=== PATIENT | male | born 1965 | race Caucasian/White ===

== ENCOUNTER 2019-11-13 12:08 | Inpatient (IN) | payer SELFPAY ==
[2019-11-13] VITALS (21 sets, daily range): BP systolic 87–126; BP diastolic 52–77; PULSE 98–155; RESP 14–94; TEMP 36.8–36.9; O2SAT 94–99; BMI 48.8
--- NOTE | 2019-11-13 12:28 | XR_ITS ---
WS: [id number] Portable AP upright chest, 11/13/2019 Clinical Data: dyspnea/cough Comparison: None. Findings: No nodules, masses or effusions are seen. The heart is normal. The pulmonary vascularity is not increased. No pneumonia or pneumothorax is seen. Monitor leads on the chest wall. XR/XR chest 1V portable [id number] Impression: Negative chest.
[2019-11-13 12:40] LABS: Basophils % 0.2 %; Eosinophils % 0.1 %; Hematocrit 44.4 % (42.0-52.0); Hemoglobin 14.6 g/dL (11.7-16.6); Lymphocytes # 1.1 10^3/uL (0.8-4.8); Lymphocytes % 11.4 %; Mean Corpuscular HGB Conc 32.9 g/dL (30.0-36.0); Mean Corpuscular Volume 91.2 fL (80-94); Mean Platelet Volume 10.5 fL (7.4-10.4); Monocytes # 1.2 10^3/uL (0.2-0.9); Monocytes % 12.3 %; Neutrophils # 7.37 10^3/uL (1.8-7.7); Neutrophils % 75.5 %; Nucleated Red Blood Cells % 0 %; Platelet Count 179 10^3/cmm (130-400); Red Blood Count 4.87 10^6/uL (4.1-5.3); Red Cell Distribution Width 13.5 % (12.1-15.1); White Blood Count 9.8 10^3/uL (4.0-10.0)
--- NOTE | 2019-11-13 12:40 | ED_ITS ---
HPI - Arrhythmia/Palpitations General: Chief Complaint: Arrhythmia/Palpitations Stated Complaint: high hr/ said they called over Time Seen by Provider: 11/13/19 12:12 History of Present Illness: HPI narrative: 54-year-old male presents emergency room directed here by his primary care provider. He was seen there noted to be in A. fib with RVR is also been having some swelling in his right leg redness some left chest pain and shortness of breath for the last week. He has not really noticed fever but he has noticed significant redness and erythema at circumferential of his right lower leg he has a history of DVT and tells me he had a [place] filter placed years ago. complaint: rapid heart beat and heart racing Onset (ago): week(s) Duration: constant Severity: moderate Arrhythmia history: atrial fibrillation Associated symptoms: Deny cough, diaphoresis, muscle cramps, nausea, paresthesias, pre-syncope, sense of impending doom, short of breath, syncope or vomiting Review of Systems Const: Denies: diaphoresis ENMT: Denies: throat pain, ear or mastoid pain, nasal discharge or nasal congestion Card: Denies: syncope or pre-syncope Resp: Denies: dyspnea, productive cough or non-productive cough GI: Denies: nausea or vomiting : Denies: flank pain, dysuria, urinary frequency or urinary urgency Musc: Denies: muscle cramps Skin/Breast: Denies: rash or pruritus PFS ED PFSH: Medical History Arteriovenous malformation of large intestine DVT (deep venous thrombosis) [place] filter in place Venous stasis ulcer with edema of lower leg Surgical History History of colon resection Social History Alcohol intake: never Physical Exam Const: COMMON NORMALS: no acute distress GENERAL APPEARANCE: cooperative and comfortable ORIENTATION/CONSCIOUSNESS: Yes awake, Yes oriented to person, Yes oriented to place and Yes oriented to time HENMT: COMMON NORMALS: normocephalic, atraumatic and hearing grossly normal bilaterally HEAD & SCALP: normocephalic and atraumatic Eye: COMMON NORMALS: Equal, round and reactive pupils present, EOMs intact bilaterally, conjunctivae normal and no scleral icterus CONJUNCTIVA: Yes conjunctivae normal PUPIL: Yes Equal, round and reactive pupils present Neck/C-Spine: COMMON NORMALS: full ROM, no lymphadenopathy, supple and no JVD Lymph: LYMPHATIC: no lymphadenopathy noted and no lymphedema noted Resp: COMMON NORMALS: normal respiratory effort, No retractions, No use of accessory muscles and clear to auscultation bilaterally AUSCULTATION: clear to auscultation bilaterally Cardio: COMMON NORMALS: no JVD, regular rate, regular rhythm and No murmurs present (Cardio) RATE: regular rate RHYTHM: regular rhythm GI: COMMON NORMALS: Soft to palpation and No hepatosplenomegaly present AUSCULTATION: Yes normoactive bowel sounds PALPATION: Yes Soft to palpation, No Tenderness to palpation present (GI), No Guarding due to palpation present (GI) and Yes No hepatosplenomegaly present Extremity: NARRATIVE EXTREMITY EXAM: Plus edema of the right lower extremity with full-thickness ulcerations circumferential erythema to the level of the knee there is some proximal lymphangitic spread Neuro: SENSORIUM/ORIENTATION: Yes oriented to person, Yes oriented to place and Yes oriented to time Skin: COMMON NORMALS: no rashes or lesions noted GENERAL SKIN EXAM: no rashes or lesions noted Course Vital Signs: Vital signs: Vital Signs Temperature 98.7 F 11/15/19 17:49 Pulse Rate 120 H 11/15/19 17:49 Respiratory Rate 21 H 11/15/19 17:49 Blood Pressure 139/87 11/15/19 17:49 Pulse Oximetry 95 11/15/19 17:49 MDM - Arrhythmia/Palpitations MDM Narrative: Medical decision making narrative: Discussed the Dr. Almonte will go ahead and admit for cellulitis the venous stasis ulcer. As well as a new onset atrial fibrillation admit to CSU orders written. Lab Data: Labs: Lab Results 11/13/19 11/13/19 Range/Units 12:23 12:23 WBC 9.8 (4.0-10.0) 10^3/ uL RBC 4.87 (4.1-5.3) 10^6/u L Hgb 14.6 (11.7-16.6) g/dL Hct 44.4 (42.0-52.0) % MCV 91.2 (80-94) fL MCH 30.0 (28.0-34.0) pg MCHC 32.9 (30.0-36.0) g/dL RDW 13.5 (12.1-15.1) % Plt Count 179 (130-400) 10^3/c mm MPV 10.5 H (7.4-10.4) fL Neut % (Auto) 75.5 % Lymph % (Auto) 11.4 % Casey % (Auto) 12.3 % Eos % (Auto) 0.1 % Baso % (Auto) 0.2 % Neut # (Auto) 7.37 (1.8-7.7) 10^3/u L Lymph # (Auto) 1.1 (0.8-4.8) 10^3/u L Casey # (Auto) 1.2 H (0.2-0.9) 10^3/u L Eos # (Auto) 0.0 (0.0-0.8) 10^3/u L Baso # (Auto) 0.0 (0.0-0.1) 10^3/u L Nucleated RBC % (a uto) 0 % Nucleated RBCs # 0.0 /100WBC Sodium 135 L (136-145) mmol/L Potassium 3.9 (3.5-5.1) mmol/L Chloride 102 (98-107) mmol/L Carbon Dioxide 21 L (22-29) mmol/L Anion Gap 15.9 (5-19) BUN 27 H (6-20) mg/dL Creatinine 1.4 H (0.7-1.2) mg/dL GFR Calculation 53.2 L (90-130) mL/min Glucose 104 (65-115) mg/dL Calculated Osmolal ity 277 L (285-295) mOsm/k g Calcium 8.9 (8.5-10.5) mg/dL Total Bilirubin 0.5 (0.15-1.2) mg/dL AST 19 (0-40) U/L ALT 18 (0-41) U/L Alkaline Phosphata se 56 (40-130) IU/L Total Protein 7.5 (6.6-8.7) g/dL Albumin 3.6 (3.5-5.2) g/dL Globulin 3.9 (1.3-4.6) g/dL Discharge Plan Discharge Patient Disposition: Admitted As Inpatient Admit Provider: Rain Almonte Clinical Impression: Cellulitis of right leg, Venous stasis ulcer with edema of lower leg, Atrial f ibrillation Condition: Stable Referrals: MARIELLA GARCIA, SHAKE TABLE OPERATOR [Primary Care Provider] - 1-3 days ([facility] will contact you to schedule an follow-up appointment in 1 to 3 days. If you haven't herad from them by Saturday. Please call ) Patient Instructions: Cefadroxil (By mouth), Diltiazem (By mouth), Doxycycline (By mouth), Atrial Fibrillation (DC), Cellulitis (DC) Interventions: ED Discharge Assessment Last Done: 11/13/19 17:20 ED Charges Last Done: 11/13/19 17:20 Forms: Work/School Release Discharge Date/Time: 11/13/19 17:31 Coding Level of Care Code ED Fitness Assistant for Chg Fwd Exam Comprehensive
[2019-11-13 12:50] LABS: Alanine Aminotransferase 18 U/L (0-41); Albumin Level 3.6 g/dL (3.5-5.2); Alkaline Phosphatase 56 IU/L (40-130); Anion Gap 15.9 (5-19); Aspartate Amino Transferase 19 U/L (0-40); Blood Urea Nitrogen 27 mg/dL (6-20); Calcium 8.9 mg/dL (8.5-10.5); Carbon Dioxide 21 mmol/L (22-29); Chloride 102 mmol/L (98-107); Globulin 3.9 g/dL (1.3-4.6); Glomerular Filtration Rate 53.2 mL/min (90-130); Glucose 104 mg/dL (65-115); Osmolality Calculated 277 mOsm/kg (285-295); Potassium 3.9 mmol/L (3.5-5.1); Sodium 135 mmol/L (136-145); Total Bilirubin 0.5 mg/dL (0.15-1.2); Total Protein 7.5 g/dL (6.6-8.7)
--- NOTE | 2019-11-13 13:28 | USCV_ITS ---
CristóbalNam gallego Age: 54 Gender: M : 1965 Exam Date: 11/13/2019 14:10 Ordering Phys: True Fair DO Technologist: Chana Arroyo Exam Location: [facility] – [place] Indication: SWOLLEN RT LOWER LEG. OPEN WOUND ANT TIBIA AREA HISTORY: Pt with history of DVT. Not on thinner. Rt. Lower leg is red and has wound PROCEDURES: Venous duplex imaging was performed in only the right lower extremity. The following venous structures were evaluated: common femoral vein, profunda vein, proximal portion of the greater saphenous vein, superficial femoral vein, and the popliteal vein. In addition, the posterior tibial and peroneal trunk were evaluated. Serial compression, augmentation maneuvers, and spectral Doppler flow evaluation were performed. FINDINGS: There is debris in Rt. CFV. There is flow and compresses but there is debris on wall of CFV. the other deep veins compress and have flow. The Rt GSV is non compressible above the knee and superiorly. Many large lymp nodes are seen in thigh. CONCLUSIONS Negative for acute deep venous thrombosis. Thrombosis of the right greater saphenous vein. Debris in the wall of the superficial femoral vein consistent with history of deep venous thrombosis. Numerous superficial lymph nodes. Dr. Sarah Mayer MD (Electronically Signed) Final Date: 13 November 2019 14:57 S
[2019-11-13] MEDS: vancomycin 1,000 MG in sodium chloride 0.9% 250 ML 250 MG IV (14:04)
--- NOTE | 2019-11-13 17:30 | PC.NURSE ---
Patient arrived to floor from ER. Patient is A&O, denies any pain. Patient provided medical hx. Physical assessment performed, see documentation. Patient on Cardizem at 10 mg/hr. IV fluids initiated. No further needs identified at this time. Nurse to continue to monitor.
[2019-11-13] MEDS: sodium chloride 0.9% 1,000 ML 100 ML IV (17:59)
--- NOTE | 2019-11-13 18:49 | PM.HP ---
Providers/Chief Complaint Admitting Physician: Rain Almonte MD Primary Care Provider: MARIELLA GARCIA Chief Complaint: high hr/ said they called over History of Present Illness Nam Bassett is a 54 year old male with PMH DVT in his 20s with venous insufficiency and chronic LE swelling and edema who presented to his PCPs office today with c/o increasing swelling over the right lower extremoty which was appearing to be bright red in color, inflammed in appearance. Gamble snot recall any trauma to the site. Also noted to have new onset A fib with RVR upon presentation for which he is currently on cardizem infusion. Denies fever or chills. No h/o DM/HTN. Has a [facility] place, states he has not been on any a/c due to h/o colonic AVM. No trauma over site of right leg , however there is stasis dermatitis changes with skin exfolaition in a ring like fashion over lower calf. Review of Systems General: Reports: 10 or more systems reviewed and unremarkable except in HPI and below Const: Denies: fever(s), chills or body aches Eyes: Denies: change in vision, blurry vision or photophobia ENMT: Reports: hoarseness; Denies: throat pain, enlarged tonsils, odynophagia or nasal congestion Card: Denies: chest pain, palpitations, irregular heart rhythm, edema, swelling of feet/ankles, lightheadedness, pre-syncope, dyspnea on exertion or orthopnea Resp: Denies: dyspnea, productive cough, non-productive cough, wheezing, stridor, pain on inspiration, change in phlegm color, hemoptysis or chest congestion GI: Denies: abdominal pain, nausea, vomiting, hematemesis, coffee ground emesis, dysphagia, heartburn, diarrhea, constipation, GI cramping, change in stool character, hematochezia or melena : Denies: flank pain, dysuria, urinary frequency, urinary urgency, urinary hesitancy or hematuria Musc: Denies: neck pain, back pain, extremity pain, joint swelling, joint warmth or deformity Neuro: Denies: headache(s), numbness in extremities, weakness in extremities, sensory changes, difficulty walking, frequent falls, dizziness, vertigo, behavioral changes, Slurred speech present or seizure-like activity Psych: Denies: anxiety, depression, suicidal ideation or homicidal ideation Endo: Denies: polyuria, polydipsia, tired all the time, cold intolerance or hot flashes Abelardo/Lymph: Denies: easy bruising or easy bleeding Medications/Allergies Home Medications Medication Instructions Recorded Confirmed Last Taken Type No Known Home Medications 11/13/19 11/13/19 Unknown History Allergies Allergy/AdvReac Type Severity Reaction Status Date / Time Penicillins Allergy Unknown Verified 11/13/19 12:20 PFSH Acute PFSH: Medical History Arteriovenous malformation of large intestine DVT (deep venous thrombosis) [place] filter in place Venous stasis ulcer with edema of lower leg Surgical History History of colon resection Social History Alcohol intake: never Vitals/I&O/Wt Last Vital Signs Temp 98.5 F 11/13/19 12:13 Pulse 126 H 11/13/19 17:53 Resp 94 H 11/13/19 17:52 BP 91/67 11/13/19 17:52 Pulse Ox 94 11/13/19 17:52 11/13/19 11/13/19 11/13/19 06:59 14:59 22:59 Intake Total 10.500 / 10.500 293.25 / 303.750 Balance 10.500 / 10.500 293.25 / 303.750 Weight last 48 hrs Weight 167.829 kg Physical Exam Narrative: EXAM NARRATIVE: GEN: Awake, alert and oriented, no acute distress HEENT: NC/AT, PERRLA CVS: S1S2 N, no murmurs, rubs or gallops RS: CTA B/L, no added sounds Abd: Soft, nt/nd , bs+ LIFE SCIENCE TECHNICIAN: no focal neuro deficits EXT: grossly inflammed, erythematous and warm c/w cellulitis below level of knee, few streaks travelling up the thigh Data : 11/13/19 12:23 11/13/19 12:23 Micro: Microbiology 11/13/19 12:41 Blood Culture - Preliminary Blood SPECIMEN COLLECTED 11/13/19 12:41 Blood Culture - Preliminary Blood SPECIMEN COLLECTED US Vascular: Radiologist's impression: LE venoud duplex without DVT A&P Assessment and plan (1) Cellulitis of right leg: Status: Acute (2) Venous stasis ulcer with edema of lower leg: Status: Acute (3) Atrial fibrillation: Status: Acute Qualifiers: Atrial fibrillation type: unspecified Qualified Code(s): I48.91 - Unspecified atrial fibrillation Additional A&P Information Admit to CSU # RLE cellulitis Start cefepime and vancomycin empirically Limb evelation check lactate LE duplex without evidence of acute DVT Check Hba1c # new onset Afib with RVR with HR 120-130s on monitor Check EKG and troponin series stat Bolus 1L IVF Maybe related to underlying sepsis Check BNP, echocardiogram Continue cardizem infusion for now as started in the ER Denies any c.o chest pain, dyspne or palpitations # chronic venous stasis related to insufficiency due to h/o DVT Has IVC filtre in place reportedly not a candidate for a/c due to h/o colonic AVM Aattempt to obtain records from PCP Full code DVT ppx: hold for now until further information can be obtained with regards to AVM Attestations Medical Necessity Statement*: anticipate >2midnight admission for management of RLE cellulitis and new onset Afib Coding Level of Care Code Acute Musical Engineer for [facility] Fwd Diagnoses Cellulitis of right leg L03.115 Venous stasis ulcer with edema of lower leg I83.009; I83.899; L97.909; R60.9 Atrial fibrillation I48.91 Atrial fibrillation type: unspecified
--- NOTE | 2019-11-13 19:08 | ECG_ITS ---
[facility] Test Date: 2019-11-13 Pat Name: Nam Bassett Department: Room: 102 Gender: Male Emergency Preparedness Coordinator: becky MARIAB: 1965 Requested By: Rain Almonte Order Number: [id number] Vesna MD: Louis Green M.D. Measurements Intervals [place] Rate: 107 P: LA: -1 QRS: 1 QRSD: 118 T: 30 QT: 345 QTc: 461 Interpretive Statements ATRIAL FIBRILLATION WITH RAPID VENTRICULAR RESPONSE MODERATE INTRAVENTRICULAR CONDUCTION DELAY [110+ ms QRS DURATION] ABNORMAL RHYTHM ECG No previous ECG available for comparison Electronically Signed On 11-13-2019 21:14:37 CDT by Louis Green M.D. [email or web address] Groupdelaware county [email or web address] Cayuga [email or web address]/store/[id number]
--- NOTE | 2019-11-13 19:40 | PC.NURSE ---
Rounding: Attempted an IV x2 with no success another nurse will attempt. Patient is alert and oriented watching TV. NO pain at this time. Will continue to monitor.
[2019-11-13 19:48] LABS: Lactic Sepsis W/Reflex 1.1 mmol/L (0.5-2.2)
[2019-11-13 19:50] LABS: Troponin(5th) Baseline 10 ng/L (0-15)
[2019-11-13 19:58] LABS: NT Pro B Type Natriuretic Pept 2741 pg/mL (0-125)
[2019-11-13] MEDS: sodium chloride 0.9% 1,000 ML 999 ML IV (20:19)
--- NOTE | 2019-11-13 21:03 | PC.NURSE ---
IV fluid bolus delayed due to no second IV
[2019-11-13 21:07] LABS: Estmated Average Glucose 108; Hemoglobin A1C 5.4 % (4.0-6.0)
[2019-11-13 21:08] LABS: Troponin 5 2HR 10.61 ng/L (0-15); Troponin 5 2HR Delta 0.61 ABS# (0-10)
--- NOTE | 2019-11-13 21:08 | ECG_ITS ---
[facility] Test Date: 2019-11-13 Pat Name: Nam Bassett Department: Room: 102 Gender: Male Delivery Room Supervisor: becky MARIAB: 1965 Requested By: Rain Almonte Order Number: [id number] Vesna MD: Nighat Coello M.D. Measurements Intervals [place] Rate: 97 P: ID: -1 QRS: 21 QRSD: 118 T: 40 QT: 354 QTc: 450 Interpretive Statements ATRIAL FIBRILLATION MODERATE INTRAVENTRICULAR CONDUCTION DELAY [110+ ms QRS DURATION] Compared to ECG 11/13/2019 20:04:20 No significant changes Electronically Signed On 11-14-2019 13:24:22 CDT by Nighat Coello M.D. [id number]
[2019-11-13] MEDS: cefepime 2,000 MG in sodium chloride 0.9% (plus) 50 ML 100 MG IV (21:23)
[2019-11-14] VITALS (8 sets, daily range): BP systolic 85–119; BP diastolic 53–76; PULSE 85–115; RESP 20–29; TEMP 36.6–37.1; O2SAT 93–95
--- NOTE | 2019-11-14 01:08 | ECG_ITS ---
[facility] Test Date: 2019-11-14 Pat Name: Nam Bassett Department: Room: 102 Gender: Male Immigration Associate: becky MARIAB: 1965 Requested By: Rain Almonte Order Number: [id number] Vesna MD: Nighat Coello M.D. Measurements Intervals [place] Rate: 118 P: IN: -1 QRS: 2 QRSD: 126 T: 28 QT: 332 QTc: 465 Interpretive Statements ATRIAL FIBRILLATION WITH RAPID VENTRICULAR RESPONSE MODERATE INTRAVENTRICULAR CONDUCTION DELAY [110+ ms QRS DURATION] ABNORMAL RHYTHM ECG Compared to ECG 11/13/2019 22:16:58 No significant changes Electronically Signed On 11-14-2019 13:23:49 CDT by Nighat Coello M.D. [id number]
[2019-11-14 01:40] LABS: Basophils % 0.1 %; Eosinophils % 0.4 %; Hematocrit 41.6 % (42.0-52.0); Hemoglobin 13.4 g/dL (11.7-16.6); Lymphocytes # 1.1 10^3/uL (0.8-4.8); Lymphocytes % 16.3 %; Mean Corpuscular HGB Conc 32.2 g/dL (30.0-36.0); Mean Corpuscular Hemoglobin 29.7 pg (28.0-34.0); Mean Corpuscular Volume 92.2 fL (80-94); Mean Platelet Volume 10.3 fL (7.4-10.4); Monocytes # 0.8 10^3/uL (0.2-0.9); Monocytes % 11.8 %; Neutrophils # 4.71 10^3/uL (1.8-7.7); Neutrophils % 70.5 %; Nucleated Red Blood Cells % 0 %; Platelet Count 158 10^3/cmm (130-400); Red Blood Count 4.51 10^6/uL (4.1-5.3); Red Cell Distribution Width 13.7 % (12.1-15.1); White Blood Count 6.7 10^3/uL (4.0-10.0)
[2019-11-14 02:00] LABS: Alanine Aminotransferase 14 U/L (0-41); Albumin Level 3.1 g/dL (3.5-5.2); Alkaline Phosphatase 47 IU/L (40-130); Anion Gap 12.8 (5-19); Aspartate Amino Transferase 14 U/L (0-40); Blood Urea Nitrogen 24 mg/dL (6-20); Calcium 8.4 mg/dL (8.5-10.5); Carbon Dioxide 23 mmol/L (22-29); Chloride 105 mmol/L (98-107); Globulin 3.5 g/dL (1.3-4.6); Glomerular Filtration Rate 63.6 mL/min (90-130); Glucose 96 mg/dL (65-115); Osmolality Calculated 281 mOsm/kg (285-295); Potassium 3.8 mmol/L (3.5-5.1); Sodium 137 mmol/L (136-145); Total Bilirubin 0.4 mg/dL (0.15-1.2); Total Protein 6.6 g/dL (6.6-8.7)
[2019-11-14 02:01] LABS: Chol HDL Ratio 3.68 mg/dL (1.0-5.00); Cholesterol 114 mg/dL (0-200); HDL Cholesterol 31 mg/dL (60-100); LDL Cholesterol Calculated 63 mg/dL (50-129); LDL HDL Ratio 2.03 RATIO (0.00-3.22); Triglycerides 101 mg/dL (0-150); Troponin 5 6HR 8.57 ng/L (0-15)
[2019-11-14 02:02] LABS: Troponin 5 6HR Delta -1.43 ng/L (0-12)
[2019-11-14] MEDS: sodium chloride 0.9% 1,000 ML 100 ML IV ×2 (03:48→14:43)
--- NOTE | 2019-11-14 05:52 | PC.NURSE ---
End of shift: Patient heartrate elevated when he had to ambulate to have a BM 140 to 150 afib. Cardizem drip titrated up. Patient frustrated with lines restristing movements. Removed what lines I could to give patient a break. Patient otherwise heart rate has stayed heartrate has been under 110 on 5mg of cardizem. Patient is alert and oriented.
--- NOTE | 2019-11-14 07:05 | P.PN_ITS ---
Subjective Subjective: Interval history: No new cold appears to be improving continues to be between 90-1 30s. Cardizem drip at 15. However patient's blood pressure remains on the softer side between 89 systolic. Patient states that this is her usual baseline Medications: Reviewed: Yes Vitals/I&O/Wt Last Vital Signs Temp 98.3 F 11/14/19 04:00 Pulse 109 H 11/14/19 04:00 Resp 24 H 11/14/19 04:00 BP 94/56 11/14/19 04:13 Pulse Ox 93 11/14/19 04:00 11/13/19 11/14/19 11/14/19 22:59 06:59 14:59 Intake Total 1389.083 / 9700.938 2495.333 / 2787.916 Output Total 750 / 750 Balance 1389.083 / 1399.583 638.333 / 2037.916 Weight last 48 hrs Weight 167.829 kg Physical Exam Narrative: EXAM NARRATIVE: GEN: Awake, alert and oriented, no acute distress HEENT: NC/AT, PERRLA CVS: S1S2 N, no murmurs, rubs or gallops RS: CTA B/L, no added sounds Abd: Soft, nt/nd , bs+ SHORE WORKING SUPERVISOR: no focal neuro deficits EXT: less inflammed, erythematous and warm c/w cellulitis below level of knee, few streaks travelling up the thigh , overall leg appears to be improving compared to yesterday. Data : 11/14/19 01:10 11/14/19 01:10 Micro: Microbiology 11/13/19 12:41 Blood Culture - Preliminary Blood SPECIMEN COLLECTED 11/13/19 12:41 Blood Culture - Preliminary Blood SPECIMEN COLLECTED A&P Assessment and plan (1) Cellulitis of right leg: Status: Acute (2) Venous stasis ulcer with edema of lower leg: Status: Acute (3) Atrial fibrillation: Status: Acute Qualifiers: Atrial fibrillation type: unspecified Qualified Code(s): I48.91 - Unspecified atrial fibrillation Additional A&P Information # RLE cellulitis cefepime and vancomycin empirically continue, cellulitis appears to be improving. Limb evelation LE duplex without evidence of acute DVT Hba1c With diabetes # new onset Afib with RVR with HR 120-130s on monitor in spite of being on Cardizem. Titrating between 10-15, however limited by borderline low blood pressure. Patient states that his baseline systolic blood pressures tend to run low, however he is unable to give me a number. Because of low blood pressure and poorly controlled heart rate, will go ahead an d bolus another liter of digoxin 500 mics now and monitor for response. Patient feels completely asymptomatic. He does not follow with PCP regularly, it is possible he may have had A. fib for a longer duration. Varghese vas score 0 as patient denies any history of CHF, hypertension, stroke, vascular history, diabetes, age less than 65 EKG with atrial fibrillation with RVR, no acute ST-T wave changes. Troponin. Without significant delta. Currently A. fib may have been triggered by an infection. Pending echocardiogram Continue cardizem infusion for now , start titrating down Denies any c.o chest pain, dyspne or palpitations # chronic venous stasis related to insufficiency due to h/o DVT Has IVC filtre in place reportedly not a candidate for a/c due to h/o colonic AVM Attempt to obtain records from PCP Full code DVT ppx: hold for now until further information can be obtained with regards to AVM Attestations Medical Necessity Statement*: Right lower extremity cellulitis IV antibiotics and A. fib with RVR which will need to be controlled. Coding Level of Care Code Acute Manager Online for Emilyg Gerardo Diagnoses Cellulitis of right leg L03.115 Venous stasis ulcer with edema of lower leg I83.009; I83.899; L97.909; R60.9 Atrial fibrillation I48.91 Atrial fibrillation type: unspecified
[2019-11-14] MEDS: cefepime 2,000 MG in sodium chloride 0.9% (plus) 50 ML 100 MG IV ×2 (07:53→19:59)
--- NOTE | 2019-11-14 11:13 | PC.CHAP ---
Pastoral Care Encounter/Spiritual Assessment Type of Contact [] Declined process laboratory specialist visit [] Patient/Family/Request visit [] Outpatient visit [] Follow-up visit [] Physician referral [] Code/Alert [XX] Routine visit [] Staff referral [] Actively dying [] Patient sleeping [] Family support [] [] Out of room [] Palliative care [] [] Receiving care in room [] Pre-surgical visit [] Trauma [] Long length of stay [] ICU visit [] Other: Relational/Emotional Strength [] Patient feels connected with others/family/visitors/staff [] Distress [] Loneliness/isolation [] Abandonment Spirituality of Patient [] Person of Monse [] Attends Taoist of their Monse [] Believes in Prayer [] Reads Bible or Adventism materials [] There are Spiritual issues to be addressed Outside Solar Sales Consultant Interventions [] Prayer [] Active listening [] Non-anxious presence [] Spiritual/emotional support [] Crisis/trauma care [] Spiritual counseling [] Bereavement support [] Provided bereavement packet [] Provided Bible/devotional materials [] Provided toy/stuffed animal, coloring book to patient or family member [] Provided Communion [] Anointing/Roby [] Salvation [] Completed spiritual assessment [] Other: Impact on Illness or Injury [] Angry [] Fearful [] Anxious [] Often cries [] Exhaustion [] Unable to work [] Unable to attend mu-ism [] Unable to walk/stand [] Unable to read [] Unable to drive [] Unable to eat/drink [] Unable to sleep [] Unable to be with family [] Patient intubated [] Other: Summary: Patient declined process laboratory specialist visit stating that he was fine. He has some sort of infection in his lower rt leg. Time spent with patient: <5 mins
[2019-11-14] MEDS: lactated ringers 1,000 ML 999 ML IV (13:07)
[2019-11-14] MEDS: digoxin 250 mcg/ml INJ 2 mL 500 MCG IVP (13:08)
--- NOTE | 2019-11-14 18:01 | PC.NURSE ---
Wound Dressing Cleanse with irrigated saline. Wet to Dry Dressing as ordered. Applied 1 non-adherent 4x4 silvercel dressing, applied 1 pack of wet 4x4 gauze sponges, covered w/ 1 pack of dry 4x4 sponges then wrapped with 1 roll gauze bandage. Tolerated activity well.
--- NOTE | 2019-11-14 19:08 | USCV_ITS ---
Nam Bassett Age: 54 Gender: M : 1965 Exam Date: 11/14/2019 13:53 Ordering Phys: Rain Almonte MD Technologist: Ifeoma May [place] [facility] [place]ication: Atrial fibrillation, new onset BP: 94 / 56 HR: 75 Rhythm: Atrial fibrillation Technical Quality: Fair MEASUREMENTS (Male / Female) Normal Values 2D ECHO LV Diastolic Diameter PLAX 4.5 cm 4.2 - 5.9 / 3.9 - 5.3 cm LV Systolic Diameter PLAX 2.5 cm LV Chamber Size 4.6 cm IVS Diastolic Thickness 1.4 cm 0.6 - 1.0 / 0.6 - 0.9 cm IVS Systolic Thickness 1.8 cm LVPW Diastolic Thickness 1.2 cm 0.6 - 1.0 / 0.6 - 0.9 cm LVPW Systolic Thickness 1.5 cm RV Chamber Size 2.6 cm LVOT Diameter 2.1 cm LV Ejection Fraction 2D Teich 76.7 % LV Ejection Fraction MOD 2C 59.9 % LV Ejection Fraction 2C AL 58.0 % LA Diameter 4.3 cm LA Width 3.5 cm LA Height 5.9 cm RA Width 2.5 cm RA Height 5.1 cm Aorta at Sinotubular Diameter 3.5 cm M-MODE LV Diastolic Diameter MM 4.8 cm 4.2 - 5.9 / 3.9 - 5.3 cm LV Systolic Diameter MM 2.9 cm LV Ejection Fraction MM Teich 71.3 % IVS Diastolic Thickness MM 1.2 cm 0.6 - 1.0 / 0.6 - 0.9 cm IVS Systolic Thickness MM 1.6 cm LVPW Diastolic Thickness MM 1.4 cm 0.6 - 1.0 / 0.6 - 0.9 cm LVPW Systolic Thickness MM 1.9 cm RV Diastolic Diameter MM 3.0 cm Aortic Annulus Diameter 4.0 cm LA Ao Ratio MM 1.1 MV E Point Septal Separation 0.3 cm DOPPLER AV Peak Velocity 147.0 cm/s LVOT Peak Velocity 113.0 cm/s AV Area Cont Eq vti 2.3 cm squared AV Area Cont Eq pk 2.6 cm squared MV Area PHT 3.2 cm squared MV E' Velocity 135.0 cm/s TR Peak Velocity 108.0 cm/s TR Peak Gradient 4.7 mmHg Right Atrial Pressure 15.0 mmHg Pulmonary Artery Systolic Pressu 19.7 mmHg PV Peak Velocity 53.0 cm/s RV Acceleration Time 0.1 s RV Ejection Time 0.3 s RV AcT/ET 0.3 FINDINGS Left Ventricle Normal left ventricular size, systolic function and wall thickness, with no diagnostic regional wall motion abnormalities. Left ventricular ejection fraction is estimated at 64 %. Flattened septum in systole consistent with right ventricle pressure overload. Right Ventricle Normal right ventricular size and systolic function. RVSP could not be calculated due to incomplete tricuspid regurgitation velocity profile. Right Atrium Normal right atrial size. Right atrial pressure estimated at 15 mm Hg. Left Atrium Normal left atrial size. Mitral Valve Structurally normal mitral valve. No mitral valve stenosis. Trace mitral valve regurgitation. Aortic Valve Structurally normal trileaflet aortic valve. No aortic valve stenosis. No aortic valve regurgitation. Tricuspid Valve Structurally normal tricuspid valve. Trace tricuspid valve regurgitation. Pulmonic Valve Structurally normal pulmonic valve. No pulmonary valve stenosis. Trace pulmonary valve regurgitation. Pericardium No pericardial effusion. Aorta Normal size aortic root. CONCLUSIONS 1. Normal left ventricular size, systolic function and wall thickness, with no diagnostic regional wall motion abnormalities. Left ventricular ejection fraction is estimated at 64 %. 2. Normal right ventricular size and systolic function. 3. No significant valvular abnormality. 4. Right atrial pressure estimated at 15 mm Hg. Nighat Coello MD (Electronically Signed) Final Date: 14 November 2019 19:11 S
[2019-11-14 19:56] LABS: Amphetamines Screen Urine Negative (Negative); Barbiturates Screen Urine Negative (Negative); Benzodiazepines Screen Urine Negative (Negative); Cocaine Screen Urine Negative (Negative); Opiate Screen Urine Negative (Negative); PCP Screen Urine Negative (Negative); THC Screen Urine Negative (Negative)
[2019-11-14] MEDS: dilTIAZem 30 mg Tablet PO (21:52)
[2019-11-15] VITALS (7 sets, daily range): BP systolic 111–139; BP diastolic 67–87; PULSE 95–121; RESP 17–26; TEMP 36.8–37.1; O2SAT 95–96
[2019-11-15] MEDS: sodium chloride 0.9% 1,000 ML 100 ML IV ×2 (00:18→11:26)
--- NOTE | 2019-11-15 00:22 | PC.NURSE ---
Patient heart rate maintaining in the 80's. Cardizem drip paused. Will continue to monitor.
[2019-11-15] MEDS: dilTIAZem 30 mg Tablet PO ×2 (03:17→08:11)
[2019-11-15 07:25] LABS: Basophils % 0.3 %; Eosinophils # 0.1 10^3/uL (0.0-0.8); Eosinophils % 1.1 %; Hematocrit 43.4 % (42.0-52.0); Hemoglobin 13.8 g/dL (11.7-16.6); Lymphocytes # 1.1 10^3/uL (0.8-4.8); Lymphocytes % 17.1 %; Mean Corpuscular HGB Conc 31.8 g/dL (30.0-36.0); Mean Corpuscular Hemoglobin 29.3 pg (28.0-34.0); Mean Corpuscular Volume 92.1 fL (80-94); Monocytes # 0.6 10^3/uL (0.2-0.9); Monocytes % 9.1 %; Neutrophils # 4.33 10^3/uL (1.8-7.7); Neutrophils % 70.6 %; Nucleated Red Blood Cells % 0 %; Platelet Count 203 10^3/cmm (130-400); Red Blood Count 4.71 10^6/uL (4.1-5.3); Red Cell Distribution Width 13.5 % (12.1-15.1); White Blood Count 6.1 10^3/uL (4.0-10.0)
[2019-11-15 07:42] LABS: Alanine Aminotransferase 18 U/L (0-41); Albumin Level 3.3 g/dL (3.5-5.2); Alkaline Phosphatase 50 IU/L (40-130); Anion Gap 13.3 (5-19); Aspartate Amino Transferase 17 U/L (0-40); Blood Urea Nitrogen 14 mg/dL (6-20); Calcium 8.5 mg/dL (8.5-10.5); Carbon Dioxide 22 mmol/L (22-29); Chloride 109 mmol/L (98-107); Globulin 3.5 g/dL (1.3-4.6); Glomerular Filtration Rate 88.6 mL/min (90-130); Glucose 100 mg/dL (65-115); Osmolality Calculated 286 mOsm/kg (285-295); Potassium 4.3 mmol/L (3.5-5.1); Sodium 140 mmol/L (136-145); Total Bilirubin 0.5 mg/dL (0.15-1.2); Total Protein 6.8 g/dL (6.6-8.7)
[2019-11-15] MEDS: cefepime 2,000 MG in sodium chloride 0.9% (plus) 50 ML 100 MG IV (07:48)
[2019-11-15 07:57] LABS: Vancomycin Trough 11.1 ug/mL (10-15)
[2019-11-15] MEDS: dilTIAZem 60 mg Tablet PO (15:43)
--- NOTE | 2019-11-15 17:21 | P.DS_ITS ---
Discharge Providers Date of Admission: 11/13/19 16:02 Date of Discharge: November 15, 2019 Attending Provider at Admission: Rain Almonte MD Attending Provider at Discharge: Rain Almonte MD Primary Care Provider: MARIELLA GARCIA Diagnoses at Discharge Discharge Diagnosis (1) Cellulitis of right leg: Status: Acute (2) Venous stasis ulcer with edema of lower leg: Status: Acute (3) Atrial fibrillation: Status: Acute Qualifiers: Atrial fibrillation type: unspecified Qualified Code(s): I48.91 - Unspecified atrial fibrillation Reason for Visit Reason for Visit: high hr/ said they called over Hospital Course Discharge Summary: Patient is a 54 year old male with PMH DVT, IVC filter in place, 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 He needed cardizem drip for rate control, one time digoxin 500mcg and subsequently transitioned to po cardizem. HR ranginging between 100-120 for most part. He was asymptomatic. No acute St-T changes. Troponin without significant delta. Echo performed. He has significant RLE cellulitis for which he received iv cefepime and iv vanocmycin with significant improvement. No signs of systemic sepsis. While it was advised that patient stay inpatient to received further abx and optimize rate control, he and his were insistent on leaving. Importaance of continuing abx and po cardizem was stressed. His will check his BP and HR theree times a day. They will follow with PCP in 1-3 days. Physical Exam Narrative: EXAM NARRATIVE: GEN: Awake, alert and oriented, no acute distress CVS: S1S2 N RS: CTA B/L Abd: Soft, nt/nd , bs+ FOLDER INSPECTOR: no focal neuro deficits Discharge Data Data Completed and Pending: Completed Studies During Hospitalization Category Date Time Status XR chest 1V renata ble [id number] Stat Exams 11/13/19 12:28 Completed CV echo complete* [id number] Routine Ultrasound 11/14/19 19:08 [place] [id number] Urgent Ultrasound 11/13/19 13:28 Completed Pending at discharge Category Date Time Status Blood Culture Sta t Lab 11/13/19 12:41 Results Labs from last 24 hours 11/15/19 11/15/19 11/15/19 07:05 07:05 07:05 WBC 6.1 RBC 4.71 Hgb 13.8 Hct 43.4 MCV 92.1 MCH 29.3 MCHC 31.8 RDW 13.5 Plt Count 203 MPV 10.0 Neut % (Auto) 70.6 Lymph % (Auto) 17.1 Baker % (Auto) 9.1 Eos % (Auto) 1.1 Baso % (Auto) 0.3 Neut # (Auto) 4.33 Lymph # (Auto) 1.1 Baker # (Auto) 0.6 Eos # (Auto) 0.1 Baso # (Auto) 0.0 Nucleated RBC % (a uto) 0 Nucleated RBCs # 0.0 Sodium 140 Potassium 4.3 Chloride 109 H Carbon Dioxide 22 Anion Gap 13.3 BUN 14 Creatinine 0.9 GFR Calculation 88.6 L Glucose 100 Calculated Osmolal ity 286 Calcium 8.5 Total Bilirubin 0.5 AST 17 ALT 18 Alkaline Phosphata se 50 Total Protein 6.8 Albumin 3.3 L Globulin 3.5 Vancomycin Trough 11.1 Urine Opiates Scre en Ur Barbiturates Sc reen Ur Phencyclidine S crn Ur Amphetamines Sc reen U Benzodiazepines Scrn Urine Cocaine Scre en U Marijuana (THC) Screen 11/14/19 18:00 WBC RBC Hgb Hct MCV MCH MCHC RDW Plt Count MPV Neut % (Auto) Lymph % (Auto) Baker % (Auto) Eos % (Auto) Baso % (Auto) Neut # (Auto) Lymph # (Auto) Baker # (Auto) Eos # (Auto) Baso # (Auto) Nucleated RBC % (a uto) Nucleated RBCs # Sodium Potassium Chloride Carbon Dioxide Anion Gap BUN Creatinine GFR Calculation Glucose Calculated Osmolal ity Calcium Total Bilirubin AST ALT Alkaline Phosphata se Total Protein Albumin Globulin Vancomycin Trough Urine Opiates Scre en Negative Ur Barbiturates Sc reen Negative Ur Phencyclidine S crn Negative Ur Amphetamines Sc reen Negative U Benzodiazepines Scrn Negative Urine Cocaine Scre en Negative U Marijuana (THC) Screen Negative Vitals: Last Vital Signs Temp 98.7 F 11/15/19 15:55 Pulse 120 H 11/15/19 15:55 Resp 21 H 11/15/19 15:55 BP 139/87 11/15/19 15:55 Pulse Ox 95 11/15/19 15:55 Discharge Plan Discharge Patient Disposition: Left Against Medical Advice Condition: Stable Prescriptions: New Cardizem CD 120 mg capsule,extended release 24hr 120 mg PO BID 30 Days Qty: 60 RF: 0 cefadroxil 1 gram tablet 1,000 mg PO BID 7 Days Qty: 14 RF: 0 doxycycline hyclate 100 mg capsule 100 mg PO BID 7 Days Qty: 14 RF: 0 No Action No Known Home Medications RF: 0 Discharge Orders: Discharge Order (Routine); Ordered 11/15/19 Ordered By: Rain Almonte Referrals: MARIELLA GARCIA ASSISTANT MANAGER AIRSIDE OPERATIONS [Primary Care Provider] - 1-3 days ([facility] will contact you to schedule an follow-up appointment in 1 to 3 days. If you haven't herad from them by Saturday. Please call ) Patient Instructions: Cefadroxil (By mouth), Diltiazem (By mouth), Doxycycline (By mouth), Atrial Fibrillation (DC), Cellulitis (DC) Discharge Attestations Time Spent in Discharge Care*: greater than 30 min Specific Discharge Activities: Specific discharge activities: educating and/or supporting family/caregiver Quality Metrics Clinical Quality Measures During this hospital stay, did patient experience: None Coding Level of Care Code Acute Foundry Patternmaker for [facility] Fwd Diagnoses Cellulitis of right leg L03.115 Venous stasis ulcer with edema of lower leg I83.009; I83.899; L97.909; R60.9 Atrial fibrillation I48.91 Atrial fibrillation type: unspecified
--- NOTE | 2019-11-15 17:41 | PC.NURSE ---
AMA Pt is going AMA. talked to pt and at bedside.
--- NOTE | 2019-11-15 18:50 | PC.NURSE ---
Pt signed AMA Notified doctor regarding discharge meds prescribed and med instructions. ordered to let pt start Keflex, Doxycycline and Diltiazem 60 mg tonight, then start his prescribed discharge meds tomorrow morning. Educated pt on the meds provided for his evening dose to take at home as ordered and the discharge meds to take starting tomorrow morning. Pt and verbalizes understanding. Pt pharmacy is close tonight and tomorrow due to holiday. Informed pt that [facility] pharmacy is open tomorrow at 10 am to 6 pm. provided Rx scripts for his discharge meds. Work release per pt request and order pt can return to work in 10 days.Work release form signed for pt.
== END 2019-11-15 19:00 | disposition left against medical advice (07) | DRG 603 ==
LOC: ER 16:27 → CSU 17:09
PROVIDERS: Family Medicine; Admitting Provider Student in an Organized Health Care Education/Training Program; PCP Nurse Practitioner Family; Visit Provider Student in an Organized Health Care Education/Training Program
DX: L03.115 Cellulitis of right lower limb (principal); L97.219 Non-pressure chronic ulcer of right calf with unspecified severity; I48.91 Unspecified atrial fibrillation; Z86.718 Personal history of other venous thrombosis and embolism; Z95.828 Presence of other vascular implants and grafts; I87.2 Venous insufficiency (chronic) (peripheral); Z90.49 Acquired absence of other specified parts of digestive tract; Z53.29 Procedure and treatment not carried out because of patient's decision for other reasons
CPT/HCPCS: 12345; 36415; 71045; 80053; 80061; 80202; 80306; 83036; 83605; 83880; 84484; 85025; 87040; 93005; 93306; 93971; 96375; 99283; J0692; J1160; J3370; J3490; J7030; J7040; J7050

== ENCOUNTER 2020-04-01 13:07 | Outpatient (CLI) | payer SELFPAY | END 2020-04-01 13:08 | disposition home or self-care (01) | LOC: WOUND 13:11 | PROVIDERS: PCP Nurse Practitioner Family; Visit Provider Surgery | DX: I87.2 Venous insufficiency (chronic) (peripheral) (principal); L97.811 Non-pressure chronic ulcer of other part of right lower leg limited to breakdown of skin | CPT/HCPCS: 11042; G0463 ==

== ENCOUNTER → 2022-06-08 07:58 | Outpatient (BNVA) | payer MEDICAID, SELFPAY | PROVIDERS: PCP Nurse Practitioner Family; Visit Provider Thoracic Surgery (Cardiothoracic Vascular Surgery) | DX: I96 Gangrene, not elsewhere classified (principal); I87.2 Venous insufficiency (chronic) (peripheral); L97.812 Non-pressure chronic ulcer of other part of right lower leg with fat layer exposed; L97.822 Non-pressure chronic ulcer of other part of left lower leg with fat layer exposed; L97.322 Non-pressure chronic ulcer of left ankle with fat layer exposed | CPT/HCPCS: 11042; 97597; 99213 ==

== ENCOUNTER 2023-01-26 10:01 | Inpatient (IN) | payer MEDICAID, SELFPAY ==
[2023-01-26] VITALS (32 sets, daily range): BP systolic 92–152; BP diastolic 54–128; PULSE 91–173; RESP 15–31; TEMP 36.7; O2SAT 94–100; BMI 49.1; BMI 48.4
--- NOTE | 2023-01-26 10:21 | PC.PHAR ---
pt states he takes his diltiazem er 180mg hs and celexa 10mg hs both taken as prn-pt states not taken either med for 3 weeks-notes are made in the pharmacy comments
--- NOTE | 2023-01-26 10:28 | XRR_ITS ---
PROCEDURE INFORMATION: Exam: XR Chest Exam date and time: 01/26/2023 10:41 AM Age: 57 years old Clinical indication: Cough; Prior surgery; Surgery date: 6+ months; Surgery type: Ivc filter; Additional info: Dyspnea/cough TECHNIQUE: Imaging protocol: Radiologic exam of the chest. Views: 1 view. COMPARISON: CR XR chest 1V portable [id number] 11/13/2019 12:34 PM FINDINGS: Lungs: No consolidation. Pleural spaces: No pleural effusion. No pneumothorax. Heart/Mediastinum: No cardiomegaly. Bones/joints: No acute findings. XR/XR chest 1V portable [id number] IMPRESSION: No acute findings.
--- NOTE | 2023-01-26 10:31 | W.ED.EXTPRO ---
HPI - Extremity Problem General: Chief complaint: Extremity Problem,Nontraumatic Stated complaint: in lots of pain, SOB, Swollen leg Time Seen by Provider: 01/26/23 10:13 Source: patient Mode of arrival: ambulatory History of Present Illness: 57-year-old male presents emergency room complaining of multiple issues he is complaining of right leg pain and swelling he has chronic venous stasis edema. Is a history of DVTs and IVC filter in place he has known A-fib he has not been a candidate for anticoagulation because of a known colonic AVM that continues to have some bleeding. On arrival now he is complaining shortness of breath with minimal exertion and orthopnea. He is in A-fib with rapid ventricular response prime presentation. He reports not having taking the Cardizem at all the last several days because it does not make him feel good, he gets lightheaded and dizzy. He is hypotensive and tachycardic on arrival. 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 Complaint: extremity pain and extremity swelling Onset (ago): day(s) Location: right and lower extremity Quality: aching Radiation: none Relieving factors: nothing Exacerbating factors: nothing Associated symptoms: Deny arthralgias, chest pain, fever(s), myalgias, rash or short of breath Review of Systems Const: Reports: fatigue and malaise; Denies: fever(s) or chills Card: Reports: palpitations, irregular heart rhythm, edema, swelling of feet/ankles and dyspnea on exertion; Denies: chest pain Resp: Denies: dyspnea, productive cough or non-productive cough GI: Denies: abdominal pain, nausea or vomiting : Denies: flank pain, dysuria, urinary frequency or urinary urgency Musc: Denies: neck pain or back pain Skin/Breast: Denies: rash PFSH ED PFSH: Medical History (Updated 02/04/23 @ 15:46 by True Fair DO) Acute kidney injury superimposed on chronic kidney disease Arteriovenous malformation of large intestine Atrial fibrillation Cellulitis of right leg DVT (deep venous thrombosis) [place] filter in place Venous stasis ulcer with edema of lower leg Surgical History History of colon resection Social History Alcohol intake: never Physical Exam Const: GENERAL APPEARANCE: cooperative and comfortable ORIENTATION/CONSCIOUSNESS: Yes awake, Yes oriented to person, Yes oriented to place and Yes oriented to time HENMT: COMMON NORMALS: normocephalic, atraumatic and hearing grossly normal bilaterally HEAD & SCALP: normocephalic and atraumatic Resp: COMMON NORMALS: normal respiratory effort, No retractions, No use of accessory muscles and clear to auscultation bilaterally AUSCULTATION: clear to auscultation bilaterally Cardio: COMMON NORMALS: No murmurs present (Cardio) RATE: tachycardic RHYTHM: abnormal rhythm irregularly irregular GI: COMMON NORMALS: Soft to palpation and No hepatosplenomegaly present AUSCULTATION: Yes normoactive bowel sounds PALPATION: Yes Soft to palpation, No Tenderness to palpation present (GI), No Guarding due to palpation present (GI) and Yes No hepatosplenomegaly present Extremity: OTHER: 2+ edema lower extremities chronic venous stasis ulcer of the right leg with full-thickness ulceration mild erythema Neuro: SENSORIUM/ORIENTATION: Yes oriented to person, Yes oriented to place and Yes oriented to time Skin: COMMON NORMALS: no rashes or lesions noted GENERAL SKIN EXAM: no rashes or lesions noted Course Vital Signs: Vital signs: Vital Signs Temperature 98.1 F 01/27/23 10:29 Pulse Rate 104 H 01/27/23 10:29 Respiratory Rate 19 H 01/27/23 10:29 Blood Pressure 118/86 01/27/23 10:29 Pulse Oximetry 95 01/27/23 10:29 Oxygen Delivery Me thod Room Air 01/27/23 07:52 MDM - Extremity (Nontraumatic) Medical Decision Making Rate improved with Cardizem. He has acute on chronic renal disease is moderately fluid overloaded chronic venous stasis ulcers as well. He has not been taking his medications recently discussed with him that very important to take medications prevent this from worsening. Discussed with hospitalist orders written Medical Records I reviewed the patient's medical records. Lab Data I reviewed the patient's lab results. 01/27/23 03:27 01/27/23 03:27 Radiology Impressions Chest X-Ray 01/26/23 10:28 IMPRESSION: No acute findings. Lower Extremity CT 01/26/23 14:15 IMPRESSION: Extensive subcutaneous edema and skin thickening/cellulitis without loculated collection or evidence of osteomyelitis. Venous Duplex 01/26/23 14:15 IMPRESSION: Thrombus within the left greater saphenous vein. ADDENDUM: 01/26/23 2258 THIS REPORT CONTAINS FINDINGS THAT MAY BE CRITICAL TO PATIENT CARE. The findings were verbally communicated via telephone conference at 5:55 PM ASSOCIATE MUSIC PROFESSOR on 01/26/2023 with LOUIS PAGAN. The findings were acknowledged and understood. Laboratory Results WBC 8.16 10^3/uL (3.29-11.43) 01/26/23 10:39 RBC 5.04 10^6/uL (3.85-5.65) 01/26/23 10:39 Hgb 14.70 g/dL (11.27-16.99) 01/26/23 10:39 Hct 46.2 % (37-53) 01/26/23 10:39 MCV 91.7 fl (82-101) 01/26/23 10:39 MCH 29.2 pg (27-33) 01/26/23 10:39 MCHC 31.8 g/dL (30-55) 01/26/23 10:39 RDW 14.7 % (12.1-15.1) 01/26/23 10:39 Plt Count 140 10^3/cmm (157-399) L 01/26/23 10:39 MPV 11.0 fL (7.4-10.4) H 01/26/23 10:39 Neut % (Auto) 83.6 % 01/26/23 10:39 Lymph % (Auto) 8.7 % 01/26/23 10:39 [place] % (Auto) 6.9 % 01/26/23 10:39 Eos % (Auto) 0.1 % 01/26/23 10:39 Baso % (Auto) 0.2 % 01/26/23 10:39 Neut # (Auto) 6.82 10^3/uL (1.8-7.7) 01/26/23 10:39 Lymph # (Auto) 0.7 10^3/uL (0.8-4.8) L 01/26/23 10:39 [place] # (Auto) 0.6 10^3/uL (0.2-0.9) 01/26/23 10:39 Eos # (Auto) 0.0 10^3/uL (0.0-0.8) 01/26/23 10:39 Baso # (Auto) 0.0 10^3/uL (0.0-0.1) 01/26/23 10:39 Nucleated RBC % (auto) 0 % 01/26/23 10:39 Nucleated RBCs # 0.0 /100WBC 01/26/23 10:39 Sodium 138 mmol/L (136-145) 01/26/23 10:39 Potassium 4.5 mmol/L (3.5-5.1) 01/26/23 10:39 Chloride 103 mmol/L (98-107) 01/26/23 10:39 Carbon Dioxide 25 mmol/L (22-29) 01/26/23 10:39 Anion Gap 14.5 (5-19) 01/26/23 10:39 BUN 30 mg/dL (6-20) H 01/26/23 10:39 Creatinine 1.4 mg/dL (0.7-1.2) H 01/26/23 10:39 GFR Calculation 52.6 mL/min (90-130) L 01/26/23 10:39 Glucose 101 mg/dL (65-115) 01/26/23 10:39 Estimat Average Glucose 117 01/26/23 10:35 Hemoglobin A1c 5.7 % (4.0-6.0) 01/26/23 10:35 Calculated Osmolality 292 mOsm/kg (285-295) 01/26/23 10:39 Calcium 9.2 mg/dL (8.5-10.5) 01/26/23 10:39 Total Bilirubin 1.0 mg/dL (0.15-1.2) 01/26/23 10:39 AST 54 U/L (0-40) H 01/26/23 10:39 ALT 39 U/L (0-41) 01/26/23 10:39 Alkaline Phosphatase 63 U/L (40-130) 01/26/23 10:39 Total Protein 7.7 g/dL (6.6-8.7) 01/26/23 10:39 Albumin 3.9 g/dL (3.5-5.2) 01/26/23 10:39 Globulin 3.8 g/dL (1.3-4.6) 01/26/23 10:39 Vitamin B12 367 pg/mL (232-1245) 01/26/23 10:35 Procalcitonin 3.16 ng/mL (0-0.5) H 01/26/23 10:35 TSH 2.52 uIU/mL (0.27-4.20) 01/26/23 10:39 All radiology interpretation(s) finalized by discharge Discharge Plan Discharge Patient Disposition: Admitted As Inpatient Admit Provider: Louis Pagan Clinical Impression: Atrial fibrillation with rapid ventricular response, Cellulitis, Chronic cutaneous venous stasis ulcer, Acute kidney injury superimposed on chronic kidney disease Condition: Stable Discharge Diet: Cardiac Discharge Activity: Increase activity as tolerated Coding Level of Care Code ED Supervisor [place] for [facility]
[2023-01-26 10:51] LABS: Basophils % 0.2 %; Eosinophils % 0.1 %; Hematocrit 46.2 % (37-53); Lymphocytes # 0.7 10^3/uL (0.8-4.8); Lymphocytes % 8.7 %; Mean Corpuscular HGB Conc 31.8 g/dL (30-55); Mean Corpuscular Hemoglobin 29.2 pg (27-33); Mean Corpuscular Volume 91.7 fl (82-101); Monocytes # 0.6 10^3/uL (0.2-0.9); Monocytes % 6.9 %; Neutrophils # 6.82 10^3/uL (1.8-7.7); Neutrophils % 83.6 %; Nucleated Red Blood Cells % 0 %; Platelet Count 140 10^3/cmm (157-399); Red Blood Count 5.04 10^6/uL (3.85-5.65); Red Cell Distribution Width 14.7 % (12.1-15.1); White Blood Count 8.16 10^3/uL (3.29-11.43)
[2023-01-26] MEDS: dilTIAZem 5 mg/mL SDV 5 mL 10 MG IVP (10:57)
[2023-01-26 11:16] LABS: Alanine Aminotransferase 39 U/L (0-41); Albumin Level 3.9 g/dL (3.5-5.2); Alkaline Phosphatase 63 U/L (40-130); Aspartate Amino Transferase 54 U/L (0-40); Blood Urea Nitrogen 30 mg/dL (6-20); Calcium 9.2 mg/dL (8.5-10.5); Carbon Dioxide 25 mmol/L (22-29); Chloride 103 mmol/L (98-107); Globulin 3.8 g/dL (1.3-4.6); Glomerular Filtration Rate 52.6 mL/min (90-130); Glucose 101 mg/dL (65-115); Osmolality Calculated 292 mOsm/kg (285-295); Sodium 138 mmol/L (136-145); Thyroid Stimulating Hormone 2.52 uIU/mL (0.27-4.20); Total Protein 7.7 g/dL (6.6-8.7)
[2023-01-26 11:17] LABS: Anion Gap 14.5 (5-19); Potassium 4.5 mmol/L (3.5-5.1)
[2023-01-26] MEDS: dilTIAZem 100 MG in sodium chloride 0.9% (add-van) 100 ML IV (11:22)
[2023-01-26] MEDS: vancomycin 1,000 MG in sodium chloride 0.9% 250 ML 250 MG IV (11:25)
--- NOTE | 2023-01-26 12:43 | PM.HP ---
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 To the ER, he does have acute on chronic kidney disease, clinically looks fluid overloaded, I have requested CT scan of right leg, he is in A-fib RVR with low blood pressure, I have started him on amiodarone discontinued Cardizem Patient has history of AV malformation history of GI bleed not a candidate of anticoagulating agent does have a IVC filter Review of Systems Const: Denies: fever(s) Eyes: Denies: change in vision ENMT: Denies: throat pain Card: Reports: irregular heart rhythm Resp: Reports: dyspnea GI: Denies: abdominal pain : Denies: flank pain Musc: Reports: back pain, extremity pain, joint swelling, joint redness and joint warmth Neuro: Denies: headache(s) Psych: Denies: anxiety Medications/Allergies Home Medications Medication Instructions Recorded Confirmed Last Taken Type citalopram 10 mg tablet 10 mg PO DAILY PRN mood 01/26/23 01/26/23 3 Weeks Ago History ~01/05/23 diltiazem HCl 180 mg 180 mg PO BEDTIME PRN Blood 01/26/23 01/26/23 3 Weeks Ago History capsule,extended release 24 hr, Pressure ~01/05/23 controlled (DILT-XR) see pharmacy comment ibuprofen 200 mg tablet 1,200 mg PO Q6H PRN Pain 01/26/23 01/26/23 Unknown History Allergies Allergy/AdvReac Type Severity Reaction Status Date / Time Penicillins Allergy Unknown Verified 01/26/23 10:19 PFSH Acute PFSH: Medical History (Updated 01/26/23 @ 14:14 by Louis Pagan MD) Arteriovenous malformation of large intestine DVT (deep venous thrombosis) [place] filter in place Venous stasis ulcer with edema of lower leg Surgical History History of colon resection Social History Alcohol intake: never Vitals/I&O/Wt Last Vital Signs Temp 98.0 F 01/26/23 10:08 Pulse 108 H 01/26/23 12:39 Resp 17 01/26/23 12:39 BP 102/72 01/26/23 12:39 Pulse Ox 96 01/26/23 12:39 O2 Del Method Room Air 01/26/23 12:39 Weight last 48 hrs Weight 168.736 kg Physical Exam Narrative: Morbidly obese Awake and alert GCS 15 Able to walk A-fib RVR Afebrile 102/72 mmHg blood pressure Pleasant cooperative GCS 15 currently on room air Right leg extremely swollen estimated left Venous stasis dermatitis Venous stasis ulcer Purulence noted around the venous stasis ulcer Data 01/27/23 03:27 01/27/23 03:27 Micro: Microbiology 01/26/23 11:05 Blood Culture - Preliminary Blood SPECIMEN COLLECTED 01/26/23 10:56 Blood Culture - Preliminary Blood SPECIMEN COLLECTED A&P Assessment and plan (1) Atrial fibrillation: (2) Cellulitis of right leg: (3) Venous stasis ulcer with edema of lower leg: (4) Acute kidney injury superimposed on chronic kidney disease: Plan Acute on chronic right leg swelling Venous stasis ulcer We will request CT scan of right leg to rule out abscess and underlying infection We will start patient on vancomycin and Zosyn We will also request venous Doppler Acute preserved fraction heart failure exacerbation I will use low-dose diuretics for now Acute on chronic kidney disease cardiorenal in nature anticipate improvement with diuresis Obtain UA History of GI bleed not a candidate for anticoagulation does have an IVC filter Full code Cardiac diet Patient is not diabetic Attestations Medical Necessity Statement*: less than 2 midnights anticipated Diagnoses Atrial fibrillation I48.91 Cellulitis of right leg L03.115 Venous stasis ulcer with edema of lower leg I83.009; I83.899; L97.909; R60.9 Acute kidney injury superimposed on chronic kidney disease N17.9; N18.9
--- NOTE | 2023-01-26 13:06 | PC.NURSE ---
attempted report [id number] and [id number]
[2023-01-26 13:25] LABS: Procalcitonin 3.16 ng/mL (0-0.5)
--- NOTE | 2023-01-26 14:15 | CTR_ITS ---
PROCEDURE INFORMATION: Exam: CT Right Lower Extremity Without Contrast; Lower Leg Exam date and time: 01/26/2023 4:23 PM Age: 57 years old Clinical indication: Pain; Swelling, leg or foot; Lower leg; Right; Additional info: Right leg swelling TECHNIQUE: Imaging protocol: CT of the right lower extremity without contrast was performed. Exam focused on the lower leg. Radiation optimization: All CT scans at this facility use at least one of these dose optimization techniques: automated exposure control; mA and/or kV adjustment per patient size (includes targeted exams where dose is matched to clinical indication); or iterative reconstruction. REPORTING DATA: Count of CT and Cardiac NM exams in prior 12 months: This patient has received 0 known CTs and 0 known cardiac nuclear medicine studies in the 12 months prior to the current study. COMPARISON: No relevant prior studies available. RADIATION DOSE METRICS: Total DLP (mGy-cm): 874.33 FINDINGS: Bones/joints: No acute fracture or dislocation or osseous destruction. Soft tissues: Extensive subcutaneous soft tissue edema and skin thickening/cellulitis throughout the lower extremity. No loculated/drainable collection. CT/CT lower leg RT wo con* [id number] IMPRESSION: Extensive subcutaneous edema and skin thickening/cellulitis without loculated collection or evidence of osteomyelitis.
--- NOTE | 2023-01-26 14:15 | USR_ITS ---
PROCEDURE INFORMATION: Exam: US Duplex Lower Extremity Veins, Bilateral Exam date and time: 01/26/2023 5:09 PM Age: 57 years old Clinical indication: Swelling (edema) of limb; Lower extremity, bilateral TECHNIQUE: Imaging protocol: Real-time duplex ultrasound of the bilateral extremities with 2-D allen scale, color Doppler flow and spectral waveform analysis including responses to compression and other maneuvers (when performed) with image documentation. Complete exam focused on the lower extremity veins. COMPARISON: CT lower leg RT wo con* [id number] 01/26/2023 4:23 PM FINDINGS: Limitations: Yarn Texture Machine Operator reports technically difficult exam due to patient leg size. Veins: Suspect thrombus throughout the left greater saphenous vein. Other veins are patent without thrombus. Normal Doppler waveforms. Normal compressibility and/or augmentation response. US/CV venous duplex [facility] [id number] IMPRESSION: Thrombus within the left greater saphenous vein.
[2023-01-26 14:27] LABS: Estmated Average Glucose 117; Hemoglobin A1C 5.7 % (4.0-6.0)
[2023-01-26] MEDS: cefepime 2,000 MG in sodium chloride 0.9% (plus) 50 ML 100 MG IV (14:40)
[2023-01-26 14:43] LABS: Thyroid Stimulating Hormone 2.55 uIU/mL (0.27-4.20); Vitamin B12 367 pg/mL (232-1245)
[2023-01-26 14:44] LABS: Glucose Urine UA Norm (Normal); Protein Urine Neg (Negative); Specific Gravity, Urine 1.015 (1.005-1.030); Urine Appearance Clear (CLEAR); Urine Color Dark Yellow (Yellow); pH Urine 5 (5-7)
[2023-01-26 14:45] LABS: Add Urine Culture? No; Add Urine Microscopic? YES; Amorphous Sediment Urine 1+ /hpf; Bacteria Urine 1+ /hpf; Bilirubin Urine 1+ (Negative); Blood Urine Trace (Negative); Coarse Granular Casts Urine 0-4 /lpf; Ketones Urine Negative (Negative); Leukocyte Esterase Urine Negative (Negative); Nitrate Urine Negative (Negative); RBC Urine 0-4 /hpf (0-2); Urobilinogen Urine 4 mg/dL (Negative)
[2023-01-26] MEDS: silvasorb gel 44.4 mL 1 APPLIC TOPICAL (15:32)
[2023-01-26] MEDS: vancomycin 1,500 MG/300 ML PIGGYBACK 200 MG IV (19:31)
[2023-01-27] VITALS: BP 116/57; PULSE 108; RESP 29; TEMP 36.8; O2SAT 96
[2023-01-27] MEDS: cefepime 2,000 MG in sodium chloride 0.9% (plus) 50 ML 100 MG IV (03:12)
[2023-01-27 03:59] LABS: Basophils % 0.3 %; Eosinophils % 0.3 %; Hematocrit 42.9 % (37-53); Lymphocytes # 0.8 10^3/uL (0.8-4.8); Lymphocytes % 12.7 %; Mean Corpuscular HGB Conc 31.7 g/dL (30-55); Mean Corpuscular Hemoglobin 29.1 pg (27-33); Mean Corpuscular Volume 91.9 fl (82-101); Monocytes # 0.7 10^3/uL (0.2-0.9); Neutrophils # 4.75 10^3/uL (1.8-7.7); Neutrophils % 74.6 %; Nucleated Red Blood Cells % 0 %; Platelet Count 133 10^3/cmm (157-399); Red Blood Count 4.67 10^6/uL (3.85-5.65); Red Cell Distribution Width 14.7 % (12.1-15.1); White Blood Count 6.37 10^3/uL (3.29-11.43)
[2023-01-27 04:15] LABS: Anion Gap 14.9 (5-19); Blood Urea Nitrogen 22 mg/dL (6-20); C Reactive Protein 129.2 mg/L (0.0-4.9); Calcium 8.3 mg/dL (8.5-10.5); Carbon Dioxide 19 mmol/L (22-29); Chloride 107 mmol/L (98-107); Glomerular Filtration Rate 77.6 mL/min (90-130); Glucose 106 mg/dL (65-115); Magnesium 2.1 mg/dL (1.7-2.3); Osmolality Calculated 288 mOsm/kg (285-295); Potassium 3.9 mmol/L (3.5-5.1); Sodium 137 mmol/L (136-145)
[2023-01-27 04:39] VITALS: BP 129/87; PULSE 85; RESP 12; O2SAT 96
[2023-01-27 05:47] VITALS: PULSE 100
[2023-01-27 07:42] VITALS: PULSE 90; RESP 16; O2SAT 97
[2023-01-27 07:52] VITALS: BP 118/86; PULSE 104; RESP 19; TEMP 36.7; O2SAT 95
[2023-01-27] MEDS: vancomycin 1,500 MG/300 ML PIGGYBACK 200 MG IV (08:42)
[2023-01-27] MEDS: FUROsemide 20 mg Tablet PO (08:42)
--- NOTE | 2023-01-27 09:54 | P.DS_ITS ---
Discharge Providers Date of Admission: 01/26/23 12:24 Date of Discharge: January 27, 2023 Attending Provider at Admission: Louis Pagan MD Attending Provider at Discharge: Louis Pagan MD Primary Care Provider: Arabella Beasley Diagnoses at Discharge Discharge Diagnosis (1) Atrial fibrillation: Status: Acute (2) Cellulitis of right leg: Status: Acute (3) Venous stasis ulcer with edema of lower leg: Status: Acute (4) Acute kidney injury superimposed on chronic kidney disease: Status: Acute Reason for Visit Reason for Visit: in lots of pain, SOB, Swollen leg Hospital Course Hospital Course 57-year-old male with history of GI bleed, A-fib, not a candidate of anticoagulation has an IVC filter, presented with worsening of right leg swelling, A-fib RVR he was put on amiodarone drip which was transitioned to amiodarone p.o. regimen at the time of discharge, p.o. AV jean-paul blocking agent discontinued, he has right leg DVT, patient is still refusing to use anticoagulating agent. 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 He will go home with amiodarone 400 mg twice daily 7 days regimen then 200 mg twice daily 7days then 200 milligram daily We will get give referral for wound care clinic CT scan of right leg did not show any local abscess Physical Exam Narrative: afib [id number] Hemodynamic stable GCS 15 right leg swelling Right leg swelling Venous stasis ulcer Soft abdomen Discharge Data Studies Completed and Pending Completed Studies During Hospitalization Category Date Time Status CT lower leg RT wo con* [id number] Routine Cat Scan 01/26/23 14:15 Completed XR chest 1V portable [id number] Stat Exams 01/26/23 10:28 [place] [id number] Routine Ultrasound 01/26/23 14:15 Completed Pending at discharge Category Date Time Status Blood Culture Stat Lab 01/26/23 11:05 Results Radiology Impressions Chest X-Ray 01/26/23 10:28 IMPRESSION: No acute findings. Lower Extremity CT 01/26/23 14:15 IMPRESSION: Extensive subcutaneous edema and skin thickening/cellulitis without loculated collection or evidence of osteomyelitis. Venous Duplex 01/26/23 14:15 IMPRESSION: Thrombus within the left greater saphenous vein. ADDENDUM: 01/26/23 1758 THIS REPORT CONTAINS FINDINGS THAT MAY BE CRITICAL TO PATIENT CARE. The findings were verbally communicated via telephone conference at 5:55 PM BRAZING MACHINE TENDER on 01/26/2023 with LOUIS PAGAN. The findings were acknowledged and understood. Laboratory Results WBC 6.37 10^3/uL (3.29-11.43) 01/27/23 03:27 RBC 4.67 10^6/uL (3.85-5.65) 01/27/23 03:27 Hgb 13.60 g/dL (11.27-16.99) 01/27/23 03:27 Hct 42.9 % (37-53) 01/27/23 03:27 MCV 91.9 fl (82-101) 01/27/23 03:27 MCH 29.1 pg (27-33) 01/27/23 03:27 MCHC 31.7 g/dL (30-55) 01/27/23 03:27 RDW 14.7 % (12.1-15.1) 01/27/23 03:27 Plt Count 133 10^3/cmm (157-399) L 01/27/23 03:27 MPV 11.0 fL (7.4-10.4) H 01/27/23 03:27 Neut % (Auto) 74.6 % 01/27/23 03:27 Lymph % (Auto) 12.7 % 01/27/23 03:27 [place] % (Auto) 11.0 % 01/27/23 03:27 Eos % (Auto) 0.3 % 01/27/23 03:27 Baso % (Auto) 0.3 % 01/27/23 03:27 Neut # (Auto) 4.75 10^3/uL (1.8-7.7) 01/27/23 03:27 Lymph # (Auto) 0.8 10^3/uL (0.8-4.8) 01/27/23 03:27 [place] # (Auto) 0.7 10^3/uL (0.2-0.9) 01/27/23 03:27 Eos # (Auto) 0.0 10^3/uL (0.0-0.8) 01/27/23 03:27 Baso # (Auto) 0.0 10^3/uL (0.0-0.1) 01/27/23 03:27 Nucleated RBC % (auto) 0 % 01/27/23 03:27 Nucleated RBCs # 0.0 /100WBC 01/27/23 03:27 Sodium 137 mmol/L (136-145) 01/27/23 03:27 Potassium 3.9 mmol/L (3.5-5.1) 01/27/23 03:27 Chloride 107 mmol/L (98-107) 01/27/23 03:27 Carbon Dioxide 19 mmol/L (22-29) L 01/27/23 03:27 Anion Gap 14.9 (5-19) 01/27/23 03:27 BUN 22 mg/dL (6-20) H 01/27/23 03:27 Creatinine 1.0 mg/dL (0.7-1.2) 01/27/23 03:27 GFR Calculation 77.6 mL/min (90-130) L 01/27/23 03:27 Glucose 106 mg/dL (65-115) 01/27/23 03:27 Estimat Average Glucose 117 01/26/23 10:35 Hemoglobin A1c 5.7 % (4.0-6.0) 01/26/23 10:35 Calculated Osmolality 288 mOsm/kg (285-295) 01/27/23 03:27 Calcium 8.3 mg/dL (8.5-10.5) L 01/27/23 03:27 Magnesium 2.1 mg/dL (1.7-2.3) 01/27/23 03:27 Total Bilirubin 1.0 mg/dL (0.15-1.2) 01/26/23 10:39 AST 54 U/L (0-40) H 01/26/23 10:39 ALT 39 U/L (0-41) 01/26/23 10:39 Alkaline Phosphatase 63 U/L (40-130) 01/26/23 10:39 C-Reactive Protein 129.2 mg/L (0.0-4.9) H 01/27/23 03:27 Total Protein 7.7 g/dL (6.6-8.7) 01/26/23 10:39 Albumin 3.9 g/dL (3.5-5.2) 01/26/23 10:39 Globulin 3.8 g/dL (1.3-4.6) 01/26/23 10:39 Vitamin B12 367 pg/mL (232-1245) 01/26/23 10:35 Procalcitonin 3.16 ng/mL (0-0.5) H 01/26/23 10:35 TSH 2.52 uIU/mL (0.27-4.20) 01/26/23 10:39 Urine Color Dark yellow (Yellow) 01/26/23 14:31 Urine Appearance Clear (CLEAR) 01/26/23 14:31 Urine pH 5 (5-7) 01/26/23 14:31 Ur Specific [place] 1.015 (1.005-1.030) 01/26/23 14:31 Urine Protein Neg (Negative) 01/26/23 14:31 Urine Glucose (UA) Norm (Normal) 01/26/23 14:31 Urine Ketones Negative (Negative) 01/26/23 14:31 Urine Blood Trace (Negative) H 01/26/23 14:31 Urine Nitrate Negative (Negative) 01/26/23 14:31 Urine Bilirubin 1+ (Negative) H 01/26/23 14:31 Urine Urobilinogen 4 mg/dL (Negative) H 01/26/23 14:31 Ur Leukocyte Esterase Negative (Negative) 01/26/23 14:31 Urine RBC 0-4 /hpf (0-2) H 01/26/23 14:31 Urine WBC 5-10 /hpf (0-5) H 01/26/23 14:31 Ur Squamous Epith Cells None /hpf (0-5) 01/26/23 14:31 Amorphous Sediment 1+ /hpf 01/26/23 14:31 Urine Bacteria 1+ /hpf (NONE) H 01/26/23 14:31 Coarse Granular Casts 0-4 /lpf H 01/26/23 14:31 Vitals Last Vital Signs Temp 98.1 F 01/27/23 07:52 Pulse 104 H 01/27/23 07:52 Resp 19 H 01/27/23 07:52 BP 118/86 01/27/23 07:52 Pulse Ox 95 01/27/23 07:52 O2 Del Method Room Air 01/27/23 07:52 Discharge Plan Discharge Patient Disposition: Home Condition: Stable Prescriptions: New furosemide 20 mg Tablet 20 mg PO DAILY@0800 Qty: 30 3RF SilvaSorb Gel,Extended Release 1 applic topical Q24H Qty: 42.5 0RF amiodarone 400 mg tablet 400 mg PO DAILY 7 Days Qty: 60 4RF Rx Instructions: 400 mg twice daily for 7 days, 200 mg twice daily for 7 days then 200mg daily potassium chloride 10 mEq tablet extended release 10 meq PO DAILY Qty: 30 1RF Continued citalopram 10 mg tablet 10 mg PO DAILY PRN (Reason: mood) Changed DILT-XR 180 mg capsule,ext.rel 24h degradable 180 mg PO BEDTIME Qty: 30 0RF Discontinued ibuprofen 200 mg Tablet 1,200 mg PO Q6H PRN (Reason: Pain) Discharge Orders: Discharge Order (Routine); Ordered 01/27/23 Ordered By: Louis Pagan Referrals: Arabella Beasley FNP [Primary Care Provider] - 7-10 days WOUND [facility]ARE CLINIC, [Staff Physician] - 1-3 days Discharge Diet: Cardiac Discharge Activity: Increase activity as tolerated Patient Instructions: Opioid Safety Discharge Attestations Time Spent in Discharge Care*: greater than 30 min Quality Metrics Clinical Quality Measures [ No reported AMI, CVA or VTE this stay] Coding Level of Care Code Acute Code for [facility] Fwd Diagnoses Atrial fibrillation I48.91 Cellulitis of right leg L03.115 Venous stasis ulcer with edema of lower leg I83.009; I83.899; L97.909; R60.9 Acute kidney injury superimposed on chronic kidney disease N17.9; N18.9
[2023-01-27 10:29] VITALS: BP 118/86; PULSE 104; RESP 19; TEMP 36.7; O2SAT 95
--- NOTE | 2023-01-27 11:59 | PC.NURSE ---
Discharge Note Patient discharged to home via POV accompanied by spouse. Discharge instructions reviewed with patient and/or asset protection representative. Mobile pharmacy medications and/or prescriptions provided. Belongings/home medications returned.
== END 2023-01-27 11:59 | disposition home or self-care (01) | DRG 308 ==
LOC: ER 10:32 → ICU 12:37 → CSU 01-27 00:29
PROVIDERS: Admitting Provider Internal Medicine; Emergency Provider Family Medicine; PCP Nurse Practitioner Family; Visit Provider Internal Medicine
DX: I48.91 Unspecified atrial fibrillation (principal); I50.33 Acute on chronic diastolic (congestive) heart failure; L03.115 Cellulitis of right lower limb; I82.812 Embolism and thrombosis of superficial veins of left lower extremity; N17.9 Acute kidney failure, unspecified; L97.919 Non-pressure chronic ulcer of unspecified part of right lower leg with unspecified severity; Z86.718 Personal history of other venous thrombosis and embolism; Z95.828 Presence of other vascular implants and grafts; I87.2 Venous insufficiency (chronic) (peripheral); N18.9 Chronic kidney disease, unspecified
CPT/HCPCS: 36415; 71045; 73700; 80048; 80053; 81001; 82607; 83036; 83735; 84145; 84443; 85025; 86140; 87040; 93970; 96365; 96367; 96375; 99285; J0283; J0692; J3370; J3490; J7050

== ENCOUNTER 2023-08-14 08:23 | Inpatient (IN) | payer MEDICAID, SELFPAY ==
[2023-08-14] VITALS (21 sets, daily range): BP systolic 83–134; BP diastolic 38–63; PULSE 89–135; RESP 17–37; TEMP 36.4–39.3; O2SAT 89–100; BMI 48.8; BMI 52.2
--- NOTE | 2023-08-14 08:32 | ECG_ITS ---
[facility] Test Date: 2023-08-14 Pat Name: Nam Bassett Department: Room: Gender: Male Population Geneticist: : 1965 Requested By: Joseph Chavez Order Number: [id number] Vesna MD: Arnoldo Rodriguez M.D. Measurements Intervals [place] Rate: 134 P: 0 VT: 0 QRS: 251 QRSD: 107 T: 61 QT: 303 QTc: 453 Interpretive Statements ATRIAL FIBRILLATION WITH RAPID VENTRICULAR RESPONSE INDETERMINATE AXIS PATTERN CONSISTENT WITH PULMONARY DISEASE INCOMPLETE RIGHT BUNDLE BRANCH BLOCK [90+ ms QRS DURATION, TERMINAL R IN V1/V2, 40+ ms S IN I/aVL/V4/V5/V6] Compared to ECG 11/14/2019 02:17:27 Indeterminate axis now present Incomplete right bundle-branch block now present Intraventricular conduction delay no longer present Electronically Signed On 08-14-2023 18:15:08 CDT by Arnoldo Rodriguez M.D. [id number] f
--- NOTE | 2023-08-14 08:36 | XR_ITS ---
WS: [id number] XR chest 1V portable [id number] REASON FOR EXAM: sob FINDINGS: Cardiomegaly. Mild tortuosity of the thoracic aorta. Calcified granulomatous disease in both hemithoraces. Prominent central pulmonary veins. Compared to the examination of 01/26/2023 there are reticular interstitial lung and irregular hazy op acities in the right lower lung of unknown chronicity. No other significant pulmonary parenchymal or pleural abnormality is identified. XR/XR chest 1V portable [id number] IMPRESSION: Opacities in the right lower lobe of unknown chronicity. Early congestive failu re or pneumonitis are possible.
--- NOTE | 2023-08-14 08:38 | W.ED.SOB ---
HPI - SOB/Dyspnea General: Chief Complaint: Shortness of Breath/Dyspnea Stated Complaint: SOB Time Seen by Provider: 08/14/23 08:30 Source: patient and family Mode of arrival: ambulatory Limitations: no limitations History of Present Illness: HPI Narrative: This patient presents to the emergency department because he is feeling short of breath and has rapid heart rate this morning. He has a history of chronic atrial fibrillation that he states and his spouse supports this that is normally controlled. 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 He denies any fevers or chills. Denies any cough. He denies any current chest pain. He apparently has had issues with with the lower extremity blood clots in the past and has a Beacon filter. He does not take any anticoagulants currently. He alleges that he was told that he was not to take any anticoagulants. He has a Beacon filter. MD elicited complaint: shortness of breath Associated symptoms: Reports extremity pain and palpitations; Deny abdominal pain, chest pain, fever(s), nausea or vomiting Related Data: Home oxygen amount: none Review of Systems Const: Denies: fever(s) or chills Eyes: Denies: change in vision ENMT: Denies: odynophagia, nasal discharge, nasal congestion or nasal obstruction Card: Reports: palpitations and irregular heart rhythm; Denies: chest pain Resp: Reports: dyspnea; Denies: productive cough or non-productive cough GI: Denies: abdominal pain, nausea or vomiting : Denies: flank pain, difficulty urinating, dysuria or urinary frequency Musc: Reports: extremity pain and extremity swelling; Denies: neck pain or back pain Skin/Breast: Denies: rash Neuro: Denies: headache(s), numbness in extremities or weakness in extremities PFS ED PFSH: Medical History (Updated 08/14/23 @ 11:28 by Joseph Chavez DO) Acute kidney injury superimposed on chronic kidney disease Atrial fibrillation Cellulitis of right leg [place] filter in place Arteriovenous malformation of large intestine Venous stasis ulcer with edema of lower leg DVT (deep venous thrombosis) Surgical History History of colon resection Social History Alcohol intake: never Physical Exam Narrative: EXAM NARRATIVE: The patient's alert somewhat colton and terse in his responses Const: COMMON NORMALS: patient oriented x3 and alert NUTRITIONAL APPEARANCE: obese HENMT: COMMON NORMALS: normocephalic, Normal external nose present, Normal nasal mucous membranes and turbinates present and moist oral mucous membranes HEAD & SCALP: normocephalic NOSE: Normal external nose present and Normal nasal mucous membranes and turbinates present TEETH & GINGIVA: Yes caries and Yes poor dentition Eye: COMMON NORMALS: Equal, round and reactive pupils present and EOMs intact bilaterally PUPIL: Yes Equal, round and reactive pupils present Neck/C-Spine: COMMON NORMALS: full ROM, no lymphadenopathy and no JVD Chest: COMMONS NORMALS: normal inspection of the chest Resp: COMMON NORMALS: normal respiratory effort and No retractions EFFORT & INSPECTION: Yes able to speak in complete sentences AUSCULTATION: crackles (At bases) Laterality: bilateral Cardio: COMMON NORMALS: no JVD and Peripheral pulses 2+ throughout RATE: tachycardic RHYTHM: abnormal rhythm irregularly irregular PERIPHERAL PULSES: Peripheral pulses 2+ throughout GI: COMMON NORMALS: Normal to inspection, nondistended, normoactive bowel sounds present, Soft to palpation and non-tender INSPECTION: Yes scar (Right paramedian) PALPATION: Yes Soft to palpation Back/Pelvis: COMMON NORMALS: no thoracic nor lumbar tenderness and thoraco-lumbar ROM normal Extremity: COMMON NORMALS: full ROM NARRATIVE EXTREMITY EXAM: Marked hypertrophy of the skin of both lower extremities with violaceous skin. Bilateral nonpitting edema Neuro: COMMON NORMALS: patient oriented x3, moves all extremities, no focal motor deficits and no sensory deficits noted SENSORIUM/ORIENTATION: Yes alert Psych: COMMON NORMALS: mental status grossly normal ATTITUDE: Yes aggressive Skin: NARRATIVE SKIN EXAM: Bilateral lower extremity skin discoloration Course Reevaluation(s): Reevaluation #1: Initially his rate responded to IV diltiazem but however even after his initial dose of a.m. amiodarone his rate is still quite fast. He is having symptoms of pulmonary congestion with right heart strain on his CT therefore we will go and initiate IV calcium channel kurt to get better rate control. He further tells me that he was told he cannot take anticoagulants due to his GI AVM that bled previously. I did review that he was at increased risk of stroke because of his atrial fibs and not on any antiplatelet or anticoagulant medications which she acknowledged. Time: 10:43 Consultations: Consultation #1: Discussed with Dr. Griffith who will place in observation for continued therapy and rate control Time: 11:36 Vital Signs: Vital signs: Vital Signs Temperature 97.8 F 08/14/23 08:34 Pulse Rate 126 H 08/14/23 11:03 Respiratory Rate 26 H 08/14/23 08:34 Blood Pressure 106/58 08/14/23 11:03 Pulse Oximetry 100 08/14/23 11:03 Oxygen Delivery Me thod Room Air 08/14/23 09:25 MDM - SOB/Dyspnea Medical Decision Making This patient made his way to the emergency department today because he felt short of breath and had an increase in his heart rate. He has a known history of chronic atrial fibrillation and takes medication to control his rate but does not take any anticoagulants because he he was told did not to do so because of an alleged intestinal AVM which has bled in the past required resection. He also has a history of a Beacon filter placed many years ago he denies any known history of coronary artery disease. He states he has been unfaithful to his amiodarone over the past 2 to 3 days but has tried to restart that medication. Denies any other concomitant symptoms at this time to include cough fever etc. Clinical examination revealed him to have a rapid ventricular response to his underlying atrial fibrillation rhythm. Workup included troponins and D-dimer to ensure no evidence of ACS and/or possible pulmonary embolus as a contributor to his current presentation. Initial D-dimer was significantly elevated past the age-related cutoff and a CTPA was obtained which was negative for any obvious large vessel embolus. He did have right heart strain exhibited on the CT scan. He initially responded to bolus of diltiazem and magnesium and addition of his usual dose of amiodarone however his rate continued to stay elevated after initial response and he is being placed on a repeat bolus and continuous infusion of diltiazem. Being recommended for observation to achieve continual rate control. He may need additional diuresis and perhaps echocardiogram. Medical Records I reviewed the patient's medical records. Lab Data I reviewed the patient's lab results. 08/14/23 08:35 08/14/23 08:35 Labs/Radiology: Radiology Impressions Chest X-Ray 08/14/23 08:36 IMPRESSION: Opacities in the right lower lobe of unknown chronicity. Early congestive failure or pneumonitis are possible. Chest CTA 08/14/23 09:35 IMPRESSION: 1. Quality of the study is compromised by significant breathing motion artifact. 2. Centrally there is no pulmonary embolism. Beginning in the segmental branches distally the opacification of the arteries is insufficient to exclude pulmonary emboli. 3. There is mild RIGHT heart strain. 4. No pneumonia. Laboratory Results WBC 13.97 10^3/uL (3.29-11.43) H 08/14/23 08:35 RBC 5.37 10^6/uL (3.85-5.65) 08/14/23 08:35 Hgb 16.30 g/dL (11.27-16.99) 08/14/23 08:35 Hct 51.4 % (37-53) 08/14/23 08:35 MCV 95.7 fl (82-101) 08/14/23 08:35 MCH 30.4 pg (27-33) 08/14/23 08:35 MCHC 31.7 g/dL (30-55) 08/14/23 08:35 RDW 14.2 % (12.1-15.1) 08/14/23 08:35 Plt Count 169 10^3/cmm (157-399) 08/14/23 08:35 MPV 9.5 fL (7.4-10.4) 08/14/23 08:35 Neut % (Auto) 88.3 % 08/14/23 08:35 Lymph % (Auto) 4.8 % 08/14/23 08:35 [place] % (Auto) 5.2 % 08/14/23 08:35 Eos % (Auto) 0.4 % 08/14/23 08:35 Baso % (Auto) 0.2 % 08/14/23 08:35 Neut # (Auto) 12.33 10^3/uL (1.8-7.7) H 08/14/23 08:35 Lymph # (Auto) 0.7 10^3/uL (0.8-4.8) L 08/14/23 08:35 [place] # (Auto) 0.7 10^3/uL (0.2-0.9) 08/14/23 08:35 Eos # (Auto) 0.1 10^3/uL (0.0-0.8) 08/14/23 08:35 Baso # (Auto) 0.0 10^3/uL (0.0-0.1) 08/14/23 08:35 Nucleated RBC % (auto) 0 % 08/14/23 08:35 Nucleated RBCs # 0.0 /100WBC 08/14/23 08:35 D-Dimer 12.40 ug/mLFEU (0-0.59) H 08/14/23 08:35 Sodium 139 mmol/L (136-145) 08/14/23 08:35 Potassium 4.9 mmol/L (3.5-5.1) 08/14/23 08:35 Chloride 104 mmol/L (98-107) 08/14/23 08:35 Carbon Dioxide 22 mmol/L (22-29) 08/14/23 08:35 Anion Gap 17.9 (5-19) 08/14/23 08:35 BUN 17 mg/dL (6-20) 08/14/23 08:35 Creatinine 1.2 mg/dL (0.7-1.2) 08/14/23 08:35 GFR Calculation 62.9 mL/min (90-130) L 08/14/23 08:35 Glucose 109 mg/dL (65-115) 08/14/23 08:35 Calculated Osmolality 290 mOsm/kg (285-295) 08/14/23 08:35 Calcium 9.1 mg/dL (8.5-10.5) 08/14/23 08:35 Magnesium 1.7 mg/dL (1.7-2.3) 08/14/23 08:35 Total Bilirubin 0.8 mg/dL (0.15-1.2) 08/14/23 08:35 AST 18 U/L (0-40) 08/14/23 08:35 ALT 22 U/L (0-41) 08/14/23 08:35 Alkaline Phosphatase 65 U/L (40-130) 08/14/23 08:35 Troponin T Baseline 8 ng/L (0-15) 08/14/23 08:35 Troponin T 120 Minute 7.90 ng/L (0-15) 08/14/23 10:38 Delta Troponin T -0.10 ABS# (0-10) L 08/14/23 10:38 NT-Pro-B Natriuret Pep 1738 pg/mL (0-125) H 08/14/23 08:35 Total Protein 7.6 g/dL (6.6-8.7) 08/14/23 08:35 Albumin 4.0 g/dL (3.5-5.2) 08/14/23 08:35 Globulin 3.6 g/dL (1.3-4.6) 08/14/23 08:35 TSH 2.97 uIU/mL (0.27-4.20) 08/14/23 08:35 All radiology interpretation(s) finalized by discharge EKG Data EKG 1: I personally reviewed and interpreted this EKG as follows: Interpretation: Contemporaneous review of resting EKG reveals a ventricular rate of 134 bpm. Underlying rhythm is atrial fibrillation consistent with atrial fibrillation with a rapid ventricular response. QRS duration is normal. Corrected QT intervals normal. No acute ST-T wave changes noted at this time. Discharge Plan Discharge Patient Disposition: Placed in Observation Clinical Impression: Atrial fibrillation with rapid ventricular response, Congestive heart failure, Venous insufficiency of both lower extremities Condition: Stable Prescriptions: No Action furosemide 20 mg Tablet 20 mg PO DAILY@0800 Qty: 30 3RF potassium chloride 10 mEq tablet extended release 10 meq PO DAILY Qty: 30 1RF prednisone 10 mg tablet 10 mg PO DAILY PRN (Reason: GOUT) allopurinol 100 mg tablet 100 mg PO DAILY PRN (Reason: GOUT) amiodarone 200 mg tablet 200 mg PO DAILY Referrals: Arabella Beasley FNP [Primary Care Provider] - Coding Level of Care Code ED [employer] Space Salesperson for Biju Carrillo
[2023-08-14] MEDS: dilTIAZem 5 mg/mL SDV 5 mL 20 MG IVP (08:41)
[2023-08-14 08:44] LABS: Basophils % 0.2 %; Eosinophils # 0.1 10^3/uL (0.0-0.8); Eosinophils % 0.4 %; Hematocrit 51.4 % (37-53); Lymphocytes # 0.7 10^3/uL (0.8-4.8); Lymphocytes % 4.8 %; Mean Corpuscular HGB Conc 31.7 g/dL (30-55); Mean Corpuscular Hemoglobin 30.4 pg (27-33); Mean Corpuscular Volume 95.7 fl (82-101); Mean Platelet Volume 9.5 fL (7.4-10.4); Monocytes # 0.7 10^3/uL (0.2-0.9); Monocytes % 5.2 %; Neutrophils # 12.33 10^3/uL (1.8-7.7); Neutrophils % 88.3 %; Nucleated Red Blood Cells % 0 %; Platelet Count 169 10^3/cmm (157-399); Red Blood Count 5.37 10^6/uL (3.85-5.65); Red Cell Distribution Width 14.2 % (12.1-15.1); White Blood Count 13.97 10^3/uL (3.29-11.43)
[2023-08-14] MEDS: magnesium sulfate premix 2 GM/50 ML PIGGYBACK IV (09:03)
[2023-08-14 09:04] LABS: Troponin(5th) Baseline 8 ng/L (0-15)
[2023-08-14 09:20] LABS: Alanine Aminotransferase 22 U/L (0-41); Alkaline Phosphatase 65 U/L (40-130); Blood Urea Nitrogen 17 mg/dL (6-20); Calcium 9.1 mg/dL (8.5-10.5); Carbon Dioxide 22 mmol/L (22-29); Chloride 104 mmol/L (98-107); Globulin 3.6 g/dL (1.3-4.6); Glomerular Filtration Rate 62.9 mL/min (90-130); Glucose 109 mg/dL (65-115); Magnesium 1.7 mg/dL (1.7-2.3); NT Pro B Type Natriuretic Pept 1738 pg/mL (0-125); Osmolality Calculated 290 mOsm/kg (285-295); Sodium 139 mmol/L (136-145); Thyroid Stimulating Hormone 2.97 uIU/mL (0.27-4.20); Total Bilirubin 0.8 mg/dL (0.15-1.2); Total Protein 7.6 g/dL (6.6-8.7)
[2023-08-14 09:23] LABS: Anion Gap 17.9 (5-19); Aspartate Amino Transferase 18 U/L (0-40); Potassium 4.9 mmol/L (3.5-5.1)
--- NOTE | 2023-08-14 09:35 | CT_ITS ---
WS: [id number] CT CHEST ANGIOGRAPHY WITH REFORMATS HISTORY: afib and elevated dimer TECHNIQUE: Contiguous axial images are obtained through the chest during arterial injection of intrav enous contrast. Images are reconstructed to evaluate the pulmonary arteries. MIP imaging also reviewe d. All CT scans at [facility] use at least one of these dose optimization techniques: automat ed exposure control; mA and/or kV adjustment per patient size (includes targeted exams where dose is matched to clinical indication); or iterative reconstruction. CONTRAST: Omnipaque 350; 100 mL IV. DLP: 557.68 mGy.cm COMPARISON: None available. Breathing motion artifact. Adequate opacification of the pulmonary arteries centrally. Motion artifact limited evaluation of the distal arteries. There is no central pulmonary emboli. Beyond the early segmental branches the opaci fication is suboptimal due to motion artifact from breathing. Pulmonary artery is dilated. Normal siz e aorta. No pneumonia. No effusion. Mildly enlarged RIGHT heart. There does appear to be slight RIGHT heart st rain. Small hiatal hernia. Hepatic steatosis. No destructive bone lesions. CT/CT angio chest PE protcl [id number] IMPRESSION: 1. Quality of the study is compromised by significant breathing motion artifac t. 2. Centrally there is no pulmonary embolism. Beginning in the segmental branch es distally the opacification of the arteries is insufficient to exclude pulmon tylor emboli. 3. There is mild RIGHT heart strain. 4. No pneumonia.
[2023-08-14] MEDS: iohexol 350 mg/mL 500 mL Btl (per mL) IV (10:03)
--- NOTE | 2023-08-14 10:56 | ECG_ITS ---
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 Measurements Intervals [place] Rate: 133 P: 0 [place]: 0 QRS: 263 QRSD: 119 T: 57 QT: 319 QTc: 475 Interpretive Statements ATRIAL FIBRILLATION WITH RAPID VENTRICULAR RESPONSE PATTERN CONSISTENT WITH PULMONARY DISEASE INCOMPLETE RIGHT BUNDLE BRANCH BLOCK [90+ ms QRS DURATION, TERMINAL R IN V1/V2, 40+ ms S IN I/aVL/V4/V5/V6] POSSIBLE RIGHT VENTRICULAR HYPERTROPHY [SOME/ALL OF: PROMINENT R IN V1, LATE TRANSITION, RAD, NIKA, SSS] Compared to ECG 08/14/2023 08:32:53 Indeterminate axis no longer present Electronically Signed On 08-14-2023 18:18:39 CDT by Arnoldo Rodriguez M.D. [id number]
[2023-08-14] MEDS: dilTIAZem 100 MG in sodium chloride 0.9% (add-van) 100 ML IV ×2 (11:02→21:56)
[2023-08-14] MEDS: dilTIAZem 5 mg/mL SDV 5 mL 10 MG IVP (11:28)
--- NOTE | 2023-08-14 11:29 | PC.NURSE ---
PER PROTOCOL, TITRATE CARDIZEM UP 2.5 MG. PER VERBAL ORDER FROM DR. POWELL, TITRATE UP TO 7.5 MG
--- NOTE | 2023-08-14 12:25 | PC.NURSE ---
PER VERBAL ORDER FROM DR. POWELL, INCREASE CARDIZEM TO 10MG
--- NOTE | 2023-08-14 12:52 | PC.NURSE ---
PER VERBAL ORDER FROM DR. POWELL, INCREASE CARDIZEM TO 12.5 MG.
--- NOTE | 2023-08-14 12:56 | PC.NURSE ---
LOWERED CARDIZEM TO 10 MG DUE TO HYPOTENSION 77/34 BP
[2023-08-14] MEDS: sodium chloride 0.9% 500 ML 999 ML IV (12:58)
--- NOTE | 2023-08-14 13:55 | PC.NURSE ---
PER VERBAL ORDER FROM DR. MAY, DECREASE CARDIZEM TO 7.5MG
--- NOTE | 2023-08-14 14:33 | P.HP_ITS ---
Providers/Chief Complaint 2 Admitting Physician: Homar Griffith MD Primary Care Provider: Arabella Beasley Chief Complaint: SOB History of Present Illness Nam Bassett is a 57 year old male with known A-fib who presents to the hospital with fast heart rate for the last 2 days. He reports he has missed several doses of his amiodarone as he has been on the road. This usually controls his heart rate fairly well. 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 He also has a history of DVT for which she has a [place] filter in the distant past. He reports he is felt short of breath with palpitations. He denies any nausea. He reports the degree of swelling in his lower extremities from venous stasis is about the same as it always is. No recent fevers or other illness. Review of Systems 2 General: Reports: 10 or more systems reviewed and unremarkable except in HPI and below Card: Reports: palpitations, irregular heart rhythm, edema, swelling of feet/ankles and dyspnea on exertion; Denies: chest pain Resp: Reports: dyspnea GI: Denies: abdominal pain, nausea, vomiting or hematochezia Medications/Allergies Home Medications Medication Instructions Recorded Confirmed Last Taken Type furosemide 20 mg tablet 20 mg PO DAILY@0800 #30 tabs 01/27/23 08/14/23 08/13/23 Rx potassium chloride 10 mEq 10 meq PO DAILY #30 tabs 01/27/23 08/14/23 08/13/23 Rx tablet,extended release allopurinol 100 mg tablet 100 mg PO DAILY PRN GOUT 08/14/23 08/14/23 Unknown History amiodarone 200 mg tablet 200 mg PO DAILY 08/14/23 08/14/23 08/11/23 History prednisone 10 mg tablet 10 mg PO DAILY PRN GOUT 08/14/23 08/14/23 Unknown History Allergies Allergy/AdvReac Type Severity Reaction Status Date / Time Penicillins Allergy Unknown Verified 01/26/23 10:19 PFSH Acute 2 PFSH: Medical History Acute kidney injury superimposed on chronic kidney disease Atrial fibrillation Cellulitis of right leg Etta filter in place Arteriovenous malformation of large intestine Venous stasis ulcer with edema of lower leg DVT (deep venous thrombosis) Surgical History History of colon resection Social History Alcohol intake: never Vitals/I&O/Wt Last Vital Signs Temp 97.8 F 08/14/23 13:57 Pulse 106 H 08/14/23 13:57 Resp 26 H 08/14/23 13:57 BP 83/47 08/14/23 13:57 Pulse Ox 97 08/14/23 13:57 O2 Del Method Room Air 08/14/23 12:53 08/13/23 08/14/23 08/14/23 22:59 06:59 14:59 Intake Total 567.000 / 567.000 Balance 567.000 / 567.000 Weight last 48 hrs Weight 179.679 kg Weight 167.829 kg Physical Exam 2 Narrative: General exam is white male, who appears a little bit short of breath, with an adequate oxygen saturation of 97% on room air. He is slightly tachypneic. HEENT: Atraumatic normocephalic. Oropharynx is clear. Neck is supple no lymphadenopathy thyromegaly Cardiovascular irregular, irregular with accelerated rate Lungs clear but with diminished breath sounds bilaterally Abdomen is soft, positive bowel sounds. No obvious organomegaly but difficult exam exams deferred Extremities show 2+ edema consistent with venous stasis bilaterally right greater than left with ichthyosis. Skin see findings above Neuro no focal deficits Data 08/14/23 08:35 08/14/23 08:35 Other Labs: Dimer was elevated at 12.4 LFTs are normal Magnesium normal Calcium and albumin normal BNP 1000 738 Troponin 8 with repeat of 7.9 TSH 2.97 CTA was performed demonstrating no obvious pulmonary embolism although study is not perfect. Mild right heart strain noted. Chest x-ray by my read demonstrates some vascular congestion in the right lung EKG demonstrates atrial fibrillation with rapid ventricular rate with left axis deviation and poor R wave progression. A&P Assessment and plan (1) Atrial fibrillation with rapid ventricular response: Patient's blood pressure is running significantly low on Cardizem drip that was initiated Will go ahead and change to an amiodarone drip. He has been maintained on this successfully in the past and it is likely he is having trouble as he has been noncompliant. Wean Cardizem off. Amiodarone initially at 200 mg twice daily. Apparently he took a home dose this morning. Check echocardiogram TSH and magnesium were checked and normal (2) Congestive heart failure: Presents with some mild acute heart failure from his tachyarrhythmia. He is not going to be able to take Lasix currently secondary to his low blood pressure. As heart rate is controlled, mild congestion will resolve. Qualifiers: Heart failure chronicity: unspecified Heart failure type: unspecified Qualified Code(s): I50.9 - Heart failure, unspecified (3) Venous insufficiency of both lower extremities: Patient with history of DVT on the right and bilateral venous stasis. He refuses any anticoagulation, and has a Etta filter although it is hard to tell how effective this is at this time. He is not amenable to taking full anticoagulation As dimer was elevated we will go ahead and check venous duplex and if significant DVT burden would revisit with him but again. Plan Other medical problems as outlined in past medical history Full code currently. SCDs if he will allow along with DVT prophylaxis dosing of anticoagulation Attestations 2 Medical Necessity Statement*: Will require less than 2 midnight stay for evaluation and treatment of atrial fibrillation with rapid ventricular rate. Coding Level of Care Code Acute Code for [facility] Diagnoses Atrial fibrillation with rapid ventricular response I48.91 Congestive heart failure I50.9 Heart failure chronicity: unspecified Heart failure type: unspecified Venous insufficiency of both lower extremities I87.2
--- NOTE | 2023-08-14 14:38 | USCV_ITS ---
Nam Bassett Age: 57 Gender: M : 1965 Exam Date: 08/14/2023 20:45 Ordering Phys: Homar Griffith MD Technologist: BRUNA Exam Location: [facility] [place] Indication: admit c/o SOB and tachycardia, history of chronic atrial fibrillation, morbid obesity, hx BLE DVTs, has [place] filter BP: 99 / 62 HR: 100 Rhythm: Atrial fibrillation Technical Quality: Adequate MEASUREMENTS (Male / Female) Normal Values 2D ECHO LV Diastolic Diameter PLAX 5.2 cm 4.2 - 5.9 / 3.9 - 5.3 cm IVS Diastolic Thickness 1.4 cm 0.6 - 1.0 / 0.6 - 0.9 cm IVS Systolic Thickness 1.9 cm LVPW Diastolic Thickness 1.2 cm 0.6 - 1.0 / 0.6 - 0.9 cm LVPW Systolic Thickness 1.8 cm LVOT Diameter 2.1 cm LV Ejection Fraction 2D Teich 66.4 % LV Ejection Fraction MOD 2C 56.6 % LV Ejection Fraction 2C AL 59.0 % LA Diameter 5.0 cm LA Sys Volume AL 110.4 cm cubed LA Sys Volume Index AL 35.2 cm cubed/m squared Aorta at Sinotubular Diameter 3.6 cm IVC Diameter 1.6 cm M-MODE LA Ao Ratio MM 1.4 AV Cusp Separation MM 2.7 cm DOPPLER AV Peak Velocity 134.0 cm/s LVOT Peak Velocity 84.0 cm/s AV Area Cont Eq vti 2.2 cm squared AV Area Cont Eq pk 2.2 cm squared MV Peak Velocity 135.0 cm/s MV Area PHT 4.0 cm squared Mitral E to A Ratio 291.0 TV Peak E Velocity 89.0 cm/s PV Peak Velocity 66.0 cm/s FINDINGS Left Ventricle Left ventricle is normal in size. LV systolic function is normal with EF of 60 to 65%. No regional wall motion abnormalities are seen. Right Ventricle Normal in size and function Right Atrium Normal in size Left Atrium Dilated Mitral Valve Structurally normal mitral valve. Aortic Valve Structurally normal aortic valve. No significant stenosis or regurgitation. Tricuspid Valve Insufficient TR jet to calculate RVSP Pulmonic Valve Not well visualized Pericardium Normal Aorta Normal in size IVC Appears to be normal CONCLUSIONS LV systolic function is normal with EF of 60 to 65%. Left atrial dilation. No significant changes compared to echocardiogram from 2020. Arnoldo Rodriguez MD (Electronically Signed) Final Date: 15 August 2023 16:23 S
--- NOTE | 2023-08-14 14:57 | USCV_ITS ---
Serjio Nam Age: 57 Gender: M : 1965 Exam Date: 08/14/2023 15:17 Ordering Phys: Homar Griffith MD Technologist: CARLENE Exam Location: [facility] – [place] Indication: Edema. HISTORY: Lower extremity edema. PROCEDURES: Venous duplex imaging was performed in bilateral lower extremities. The following venous structures were evaluated: common femoral vein, profunda vein, proximal portion of the greater saphenous vein, superficial femoral vein, and the popliteal vein. In addition, the posterior tibial and peroneal trunk were evaluated. Serial compression, augmentation maneuvers, and spectral Doppler flow evaluation were performed. Comparison:. 01/26/23 FINDINGS: Normal 2-D Doppler and augmentation and compressibility throughout the lower extremity venous structures. Additional imaging through the proximal calf veins also reveals no thrombus. Possible superficial thrombus in left GSV ankle to below knee CONCLUSIONS No DVT noted bilateral lower extremities. Possible left lower extremity superficial vein thrombosis below the knee. Technically very limited evaluation. Dr. Gardenia York DO (Electronically Signed) Final Date: 14 August 2023 16:06 S
[2023-08-14] MEDS: enoxaparin 40 mg/0.4 mL Syringe SUBCUT (15:22)
--- NOTE | 2023-08-14 15:26 | PC.NURSE ---
received in to room 111-2 from er at 1350.report received.pt is alert and oriented x 4.denies pain at present.afib on monitor with rates 100-120.cardizem drip on at 7.5 mg per hour.oriented to room environment.instructed to notify staff for any sob,chest pain,or for any concerns at all.pt verb understanding of instructions
--- NOTE | 2023-08-14 15:44 | ECG_ITS ---
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 Measurements Intervals [place] Rate: 108 P: 0 WY: 0 QRS: 255 QRSD: 114 T: 70 QT: 337 QTc: 453 Interpretive Statements ATRIAL FIBRILLATION WITH RAPID VENTRICULAR RESPONSE INCOMPLETE RIGHT BUNDLE BRANCH BLOCK [90+ ms QRS DURATION, TERMINAL R IN V1/V2, 40+ ms S IN I/aVL/V4/V5/V6] POSSIBLE RIGHT VENTRICULAR HYPERTROPHY [SOME/ALL OF: PROMINENT R IN V1, LATE TRANSITION, RAD, NIKA, SSS] Compared to ECG 08/14/2023 10:56:42 No significant changes Electronically Signed On 08-14-2023 18:16:52 CDT by Arnoldo Rodriguez M.D. [id number]
[2023-08-14 15:51] LABS: Troponin 5 6HR 13.38 ng/L (0-15); Troponin 5 6HR Delta 5.38 ng/L (0-12)
[2023-08-14] MEDS: amiodarone 200 mg Tablet PO (18:02)
[2023-08-14 18:06] LABS: Urine Appearance Clear (CLEAR); Urine Color Dark Yellow (Yellow); pH Urine 6 (5-7)
[2023-08-14 18:07] LABS: Blood Urine Neg (Negative); Glucose Urine UA Norm (Normal); Ketones Urine 1+ (Negative); Nitrate Urine Negative (Negative); Protein Urine Trace (Negative)
[2023-08-14 18:08] LABS: Add Urine Microscopic? YES; Bilirubin Urine 1+ (Negative); Leukocyte Esterase Urine Negative (Negative); Urobilinogen Urine 4 mg/dL (Negative)
[2023-08-14 18:11] LABS: Add Urine Culture? No
[2023-08-14] MEDS: metoprolol tartrate 25 mg Tablet 12.5 MG PO (19:01)
[2023-08-14] MEDS: acetaminophen 325 mg Tablet 650 MG PO (20:42)
[2023-08-14 21:37] LABS: Procalcitonin 5.22 ng/mL (0-0.5)
[2023-08-14] MEDS: cefTRIAXone 1,000 MG in sodium chloride 0.9% (plus) 50 ML 100 MG IV (23:29)
--- NOTE | 2023-08-14 23:35 | PC.NURSE ---
Patient was febrile with 102.8 fever and elevated WBC count. Sepsis screening protocol was started and Dr Smiley notified. Dr Smiley ordered further blood testing and antibiotics were ordered. Patient Right leg below knee noted to be very red. Site was marked with date and time.
[2023-08-15] VITALS (9 sets, daily range): BP systolic 100–112; BP diastolic 58–74; PULSE 87–105; RESP 15–37; TEMP 36.8–37.9; O2SAT 92–98; BMI 51.9
[2023-08-15] MEDS: vancomycin 2,000 MG/400 ML PIGGYBACK 200 MG IV ×2 (00:31→13:30)
[2023-08-15 04:28] LABS: Basophils % 0.1 %; Eosinophils % 0.1 %; Hematocrit 43.4 % (37-53); Lymphocytes # 0.6 10^3/uL (0.8-4.8); Lymphocytes % 3.9 %; Mean Corpuscular HGB Conc 32.3 g/dL (30-55); Mean Corpuscular Hemoglobin 30.9 pg (27-33); Mean Corpuscular Volume 95.8 fl (82-101); Monocytes # 0.9 10^3/uL (0.2-0.9); Monocytes % 6.2 %; Neutrophils # 13.08 10^3/uL (1.8-7.7); Nucleated Red Blood Cells % 0 %; Platelet Count 217 10^3/cmm (157-399); Red Blood Count 4.53 10^6/uL (3.85-5.65); Red Cell Distribution Width 14.7 % (12.1-15.1)
[2023-08-15 04:54] LABS: Alanine Aminotransferase 17 U/L (0-41); Albumin Level 3.7 g/dL (3.5-5.2); Alkaline Phosphatase 49 U/L (40-130); Anion Gap 18.5 (5-19); Aspartate Amino Transferase 13 U/L (0-40); Blood Urea Nitrogen 27 mg/dL (6-20); Calcium 8.4 mg/dL (8.5-10.5); Carbon Dioxide 19 mmol/L (22-29); Chloride 102 mmol/L (98-107); Globulin 2.6 g/dL (1.3-4.6); Glomerular Filtration Rate 48.6 mL/min (90-130); Glucose 94 mg/dL (65-115); Osmolality Calculated 285 mOsm/kg (285-295); Potassium 4.5 mmol/L (3.5-5.1); Sodium 135 mmol/L (136-145); Total Bilirubin 1.1 mg/dL (0.15-1.2); Total Protein 6.3 g/dL (6.6-8.7)
[2023-08-15 04:58] LABS: Creatinine Clr Calc Pharmacy 94.2962
[2023-08-15] MEDS: amiodarone 200 mg Tablet PO ×2 (08:03→17:48)
[2023-08-15] MEDS: metoprolol tartrate 25 mg Tablet PO ×2 (08:05→21:38)
[2023-08-15] MEDS: potassium chloride ER 10 mEq Tablet PO (08:12)
[2023-08-15] MEDS: FUROsemide 10 mg/mL SDV 2mL 20 MG IVP (08:12)
--- NOTE | 2023-08-15 09:44 | P.PN_ITS ---
Subjective 2 Subjective: Nam ran a fever last night. He was started on Rocephin and vancomycin. MRSA PCR is pending. His concern of cellulitis on his right lower extremity. Patient reports he feels better than he did yesterday, and nursing reports his heart rate has been under better control around 100. His diltiazem drip has been turned off. Medications: Reviewed: Yes Vitals/I&O/Wt Last Vital Signs Temp 98.2 F 08/15/23 07:59 Pulse 93 08/15/23 07:59 Resp 26 H 08/15/23 07:59 BP 104/68 08/15/23 07:59 Pulse Ox 94 08/15/23 08:00 O2 Del Method Room Air 08/15/23 08:00 08/14/23 08/15/23 08/15/23 22:59 06:59 14:59 Intake Total 305.75 / 872.750 470.084 / 1342.834 360 / 360 Output Total 325 / 325 300 / 625 Balance -19.25 / 547.750 170.084 / 717.834 360 / 360 Weight last 48 hrs Weight 178.404 kg Weight 179.679 kg Weight 167.829 kg Physical Exam 2 Narrative: General exam no distress Neck is supple no lymphadenopathy thyromegaly Cardiovascular irregular, irregular with accelerated rate Lungs clear but with diminished breath sounds bilaterally Abdomen is soft, positive bowel sounds. No obvious organomegaly but difficult exam Extremities show 2+ edema consistent with venous stasis bilaterally right greater than left with ichthyosis. Some erythema right lower extremity approaching line that was drawn on skin marking cellulitis. Data 08/15/23 03:39 08/15/23 03:39 Micro: Microbiology 08/15/23 00:00 Blood Culture - Preliminary Blood SPECIMEN COLLECTED 08/15/23 00:00 Blood Culture - Preliminary Blood SPECIMEN COLLECTED A&P Assessment and plan (1) Atrial fibrillation with rapid ventricular response: Improving control on amiodarone 200 mg twice daily Metoprolol added yesterday. Will increase dosing. Echocardiogram is pending TSH and magnesium were checked and normal (2) Congestive heart failure: Presents with some mild acute heart failure from his tachyarrhythmia. Lasix 20 mg IV x 1, possible repeat dosing tomorrow. BMP tomorrow. Potassium 10 mill equivalents p.o. x 1. Qualifiers: Heart failure chronicity: unspecified Heart failure type: unspecified Qualified Code(s): I50.9 - Heart failure, unspecified (3) Venous insufficiency of both lower extremities: Patient with history of DVT on the right and bilateral venous stasis. He refuses any anticoagulation, and has a [place] filter although it is hard to tell how effective this is at this time. He is not amenable to taking full anticoagulation As dimer was elevated venous duplex was checked. No evidence of DVT. CTA demonstrated no pulmonary embolism. Plan Other medical problems as outlined in past medical history Full code currently. SCDs if he will allow along with DVT prophylaxis dosing of anticoagulation Attestations 2 Medical Necessity Statement*: Needs continued hospitalization for antibiotics for secondary to cellulitis with fever. Diagnoses Atrial fibrillation with rapid ventricular response I48.91 Congestive heart failure I50.9 Heart failure chronicity: unspecified Heart failure type: unspecified Venous insufficiency of both lower extremities I87.2 Time Spent (min) 25
[2023-08-15] MEDS: enoxaparin 40 mg/0.4 mL Syringe SUBCUT (15:53)
[2023-08-15] MEDS: cefTRIAXone 1,000 MG in sodium chloride 0.9% (plus) 50 ML 100 MG IV (23:59)
[2023-08-16 00:04] VITALS: BP 109/68; PULSE 102; RESP 24; TEMP 37.2; O2SAT 94
[2023-08-16] MEDS: vancomycin 2,000 MG/400 ML PIGGYBACK 200 MG IV (02:10)
[2023-08-16 04:12] LABS: Basophils % 0.1 %; Eosinophils % 0.3 %; Hematocrit 43.9 % (37-53); Lymphocytes # 0.8 10^3/uL (0.8-4.8); Mean Corpuscular HGB Conc 31.9 g/dL (30-55); Mean Corpuscular Hemoglobin 30.3 pg (27-33); Mean Platelet Volume 9.9 fL (7.4-10.4); Monocytes # 0.9 10^3/uL (0.2-0.9); Monocytes % 8.9 %; Neutrophils # 8.14 10^3/uL (1.8-7.7); Nucleated Red Blood Cells % 0 %; Platelet Count 123 10^3/cmm (157-399); Red Blood Count 4.62 10^6/uL (3.85-5.65); Red Cell Distribution Width 14.1 % (12.1-15.1); White Blood Count 9.92 10^3/uL (3.29-11.43)
[2023-08-16 04:30] VITALS: BP 100/58; PULSE 103; RESP 21; TEMP 36.9; O2SAT 93
[2023-08-16 04:34] VITALS: BMI 51.3
[2023-08-16 04:34] LABS: Anion Gap 14.2 (5-19); Blood Urea Nitrogen 22 mg/dL (6-20); Calcium 8.3 mg/dL (8.5-10.5); Carbon Dioxide 23 mmol/L (22-29); Chloride 101 mmol/L (98-107); Creatinine Clr Calc Pharmacy 117.3685; Glomerular Filtration Rate 62.9 mL/min (90-130); Glucose 100 mg/dL (65-115); Magnesium 2.3 mg/dL (1.7-2.3); Osmolality Calculated 281 mOsm/kg (285-295); Potassium 4.2 mmol/L (3.5-5.1); Sodium 134 mmol/L (136-145)
[2023-08-16 05:06] VITALS: PULSE 102
[2023-08-16 07:53] VITALS: BP 122/72; PULSE 98; TEMP 36.4
--- NOTE | 2023-08-16 08:49 | PC.CHAP ---
Pastoral Care Encounter/Spiritual Assessment Type of Contact [] Declined ex assistant/program director visit [] Patient/Family/Request visit [] Outpatient visit [] Follow-up visit [] Physician referral [] Code/Alert [x] Routine visit [] Staff referral [] Actively dying [] Patient sleeping [] Family support [] [] Out of room [] Palliative care [] [] Receiving care in room [] Pre-surgical visit [] Trauma [] Long length of stay [] ICU visit [] Other: Relational/Emotional Strength [x] Patient feels connected with others/family/visitors/staff [] Distress [] Loneliness/isolation [] Abandonment Spirituality of Patient [x] Person of Monse [] Attends Rastafarian of their Monse [x] Believes in Prayer [] Reads Bible or Bahai materials [] There are Spiritual issues to be addressed Pc Maintenance Technician Interventions [x] Prayer [x] Active listening [] Non-anxious presence [x] Spiritual/emotional support [] Crisis/trauma care [] Spiritual counseling [] Bereavement support [] Provided bereavement packet [] Provided Bible/devotional materials [] Provided toy/stuffed animal, coloring book to patient or family member [] Provided Communion [] Anointing/[place] [] Salvation [x] Completed spiritual assessment [] Other: Impact on Illness or Injury [] Angry [] Fearful [] Anxious [] Often cries [] Exhaustion [] Unable to work [] Unable to attend tenriism [] Unable to walk/stand [] Unable to read [] Unable to drive [] Unable to eat/drink [] Unable to sleep [] Unable to be with family [] Patient intubated [] Other: Summary Time spent with patient 5 min
[2023-08-16] MEDS: metoprolol tartrate 25 mg Tablet PO (08:58)
[2023-08-16] MEDS: amiodarone 200 mg Tablet PO (08:58)
--- NOTE | 2023-08-16 10:35 | PM.DCS ---
Discharge Providers Date of Admission: 08/15/23 08:01 Date of Discharge: August 16, 2023 Attending Provider at Admission: Homar Griffith MD Attending Provider at Discharge: Homar Griffith MD Primary Care Provider: Arabella Beasley Diagnoses at Discharge Discharge Diagnosis (1) Atrial fibrillation with rapid ventricular response: Status: Acute (2) Congestive heart failure: Status: Acute Qualifiers: Heart failure chronicity: unspecified Heart failure type: unspecified Qualified Code(s): I50.9 - Heart failure, unspecified (3) Venous insufficiency of both lower extremities: Status: Acute Reason for Visit Reason for Visit: SOB Hospital Course Hospital Course Nam is a 57-year-old white male who presented to the hospital with A-fib with RVR. He was placed on Cardizem drip. His amiodarone which she had missed several doses of was increased to 100 mg twice daily while in the hospital. He was transitioned to oral metoprolol, and Cardizem was weaned. While in the hospital he developed a fever, and redness of his right leg. He was placed on IV antibiotics consisting of vancomycin and ceftriaxone. White count initially elevated, decreased by August 15. Erythema was slightly better, and turning ruborous. He very much wanted to go home, which was reasonable considering no further fevers, blood cultures negative to date, and white count had returned to normal. He will discharge on doxycycline, and cephalexin. He will follow-up with cardiology in 2 weeks and his primary care provider in 3 to 5 days. He was encouraged to use compression hose on his legs, moisturizer on areas of dry skin without perfume, and return for any concerns. He is were given opportunity ask questions and agreed with the plan. Echocardiogram was performed while he was in the hospital and EF was preserved, left atrial dilation noted. Physical Exam Narrative: General exam no distress Neck is supple Cardiovascular irregular, irregular with controlled rate Lungs clear Abdomen soft Extremities some persistent edema and erythema right lower extremity and venous stasis changes bilaterally. Discharge Data Studies Completed and Pending Completed Studies During Hospitalization Category Date Time Status CT PE [CT angio chest PE protcl 17219] Stat Cat Scan 08/14/23 09:35 Completed XR chest 1V portable [id number] Stat Exams 08/14/23 08:36 [place] [id number] Routine Ultrasound 08/14/23 14:57 Completed CV. echo complete* [id number] Routine Ultrasound 08/14/23 14:38 Completed Pending at discharge Category Date Time Status Blood Culture Stat Lab 08/14/23 23:03 Results MRSA [Methicillin Resistant S.aureu] Routine Lab 08/15/23 02:00 Received Vancomycin Trough Timed Lab 08/16/23 13:00 Ordered Radiology Impressions Chest X-Ray 08/14/23 08:36 IMPRESSION: Opacities in the right lower lobe of unknown chronicity. Early congestive failure or pneumonitis are possible. Chest CTA 08/14/23 09:35 IMPRESSION: 1. Quality of the study is compromised by significant breathing motion artifact. 2. Centrally there is no pulmonary embolism. Beginning in the segmental branches distally the opacification of the arteries is insufficient to exclude pulmonary emboli. 3. There is mild RIGHT heart strain. 4. No pneumonia. Laboratory Results WBC 9.92 10^3/uL (3.29-11.43) 08/16/23 03:57 RBC 4.62 10^6/uL (3.85-5.65) 08/16/23 03:57 Hgb 14.00 g/dL (11.27-16.99) 08/16/23 03:57 Hct 43.9 % (37-53) 08/16/23 03:57 MCV 95.0 fl (82-101) 08/16/23 03:57 MCH 30.3 pg (27-33) 08/16/23 03:57 MCHC 31.9 g/dL (30-55) 08/16/23 03:57 RDW 14.1 % (12.1-15.1) 08/16/23 03:57 Plt Count 123 10^3/cmm (157-399) L D 08/16/23 03:57 MPV 9.9 fL (7.4-10.4) 08/16/23 03:57 Neut % (Auto) 82.0 % 08/16/23 03:57 Lymph % (Auto) 8.0 % 08/16/23 03:57 Wagoner % (Auto) 8.9 % 08/16/23 03:57 Eos % (Auto) 0.3 % 08/16/23 03:57 Baso % (Auto) 0.1 % 08/16/23 03:57 Neut # (Auto) 8.14 10^3/uL (1.8-7.7) H 08/16/23 03:57 Lymph # (Auto) 0.8 10^3/uL (0.8-4.8) 08/16/23 03:57 Wagoner # (Auto) 0.9 10^3/uL (0.2-0.9) 08/16/23 03:57 Eos # (Auto) 0.0 10^3/uL (0.0-0.8) 08/16/23 03:57 Baso # (Auto) 0.0 10^3/uL (0.0-0.1) 08/16/23 03:57 Nucleated RBC % (auto) 0 % 08/16/23 03:57 Nucleated RBCs # 0.0 /100WBC 08/16/23 03:57 D-Dimer 12.40 ug/mLFEU (0-0.59) H 08/14/23 08:35 Sodium 134 mmol/L (136-145) L 08/16/23 03:57 Potassium 4.2 mmol/L (3.5-5.1) 08/16/23 03:57 Chloride 101 mmol/L (98-107) 08/16/23 03:57 Carbon Dioxide 23 mmol/L (22-29) 08/16/23 03:57 Anion Gap 14.2 (5-19) 08/16/23 03:57 BUN 22 mg/dL (6-20) H 08/16/23 03:57 Creatinine 1.2 mg/dL (0.7-1.2) 08/16/23 03:57 GFR Calculation 62.9 mL/min (90-130) L 08/16/23 03:57 Glucose 100 mg/dL (65-115) 08/16/23 03:57 Calculated Osmolality 281 mOsm/kg (285-295) L 08/16/23 03:57 Calcium 8.3 mg/dL (8.5-10.5) L 08/16/23 03:57 Magnesium 2.3 mg/dL (1.7-2.3) 08/16/23 03:57 Total Bilirubin 1.1 mg/dL (0.15-1.2) 08/15/23 03:39 AST 13 U/L (0-40) 08/15/23 03:39 ALT 17 U/L (0-41) 08/15/23 03:39 Alkaline Phosphatase 49 U/L (40-130) 08/15/23 03:39 Troponin T Baseline 8 ng/L (0-15) 08/14/23 08:35 Troponin T 120 Minute 7.90 ng/L (0-15) 08/14/23 10:38 Delta Troponin T -0.10 ABS# (0-10) L 08/14/23 10:38 Troponin T Hi Sens 6Hr 13.38 ng/L (0-15) 08/14/23 15:21 Troponin T Hi Sens 6Hr Delta 5.38 ng/L (0-12) 08/14/23 15:21 NT-Pro-B Natriuret Pep 1738 pg/mL (0-125) H 08/14/23 08:35 Total Protein 6.3 g/dL (6.6-8.7) L 08/15/23 03:39 Albumin 3.7 g/dL (3.5-5.2) 08/15/23 03:39 Globulin 2.6 g/dL (1.3-4.6) 08/15/23 03:39 Procalcitonin 5.22 ng/mL (0-0.5) H 08/14/23 15:21 TSH 2.97 uIU/mL (0.27-4.20) 08/14/23 08:35 Urine Color Dark yellow (Yellow) 08/14/23 17:00 Urine Appearance Clear (CLEAR) 08/14/23 17:00 Urine pH 6 (5-7) 08/14/23 17:00 Ur Specific [place] 1.010 (1.005-1.030) 08/14/23 17:00 Urine Protein Trace (Negative) 08/14/23 17:00 Urine Glucose (UA) Norm (Normal) 08/14/23 17:00 Urine Ketones 1+ (Negative) H 08/14/23 17:00 Urine Blood Neg (Negative) 08/14/23 17:00 Urine Nitrate Negative (Negative) 08/14/23 17:00 Urine Bilirubin 1+ (Negative) H 08/14/23 17:00 Urine Urobilinogen 4 mg/dL (Negative) H 08/14/23 17:00 Ur Leukocyte Esterase Negative (Negative) 08/14/23 17:00 Urine RBC None /hpf (0-2) 08/14/23 17:00 Urine WBC None /hpf (0-5) 08/14/23 17:00 Ur Squamous Epith Cells None /hpf (0-5) 08/14/23 17:00 Amorphous Sediment Not Reportable 08/14/23 17:00 Urine Bacteria None /hpf (NONE) 08/14/23 17:00 Urine Mucus None /hpf 08/14/23 17:00 Vitals Last Vital Signs Temp 97.5 F L 08/16/23 07:53 Pulse 98 08/16/23 07:53 Resp 21 H 08/16/23 04:30 BP 122/72 08/16/23 07:53 Pulse Ox 93 08/16/23 04:30 O2 Del Method Room Air 08/15/23 20:00 Discharge Plan Discharge Patient Disposition: Home Condition: Stable Prescriptions: New metoprolol tartrate 25 mg Tablet 25 mg PO BID@0900,2100 Qty: 60 0RF cephalexin 500 mg capsule 500 mg PO TID 7 Days Qty: 21 0RF doxycycline monohydrate 100 mg capsule 100 mg PO BID 7 Days Qty: 14 0RF Continued furosemide 20 mg Tablet 20 mg PO DAILY@0800 Qty: 30 3RF potassium chloride 10 mEq tablet extended release 10 meq PO DAILY Qty: 30 1RF prednisone 10 mg tablet 10 mg PO DAILY PRN (Reason: GOUT) allopurinol 100 mg tablet 100 mg PO DAILY PRN (Reason: GOUT) amiodarone 200 mg tablet 200 mg PO DAILY Discharge Orders: Discharge Order (Routine); Ordered 08/16/23 Ordered By: Homar Griffith Referrals: Arabella Beasley FNP [Primary Care Provider] - 4-7 days Jennyfer Dietrich FNP [Nurse Practitioner] - 2 weeks Discharge Diet: Cardiac Discharge Activity: Increase activity as tolerated Patient Instructions: Heart Failure (DC), CHF Stoplight, Opioid Safety Activity Restrictions/Additional Instructions: Take all medicine as prescribed Follow-up with primary care provider 3 to 5 days Follow-up with cardiology 2 weeks Return for any concerns, such as fever or worsening redness of the leg Use compression hose as well as skin moisturizer to legs Discharge Attestations Time Spent in Discharge Care*: greater than 30 min Quality Metrics Clinical Quality Measures [ No reported AMI, CVA or VTE this stay] Coding Level of Care Code 30657 Total time (in minutes) for Discharge: 32 Diagnoses Atrial fibrillation with rapid ventricular response I48.91 Congestive heart failure I50.9 Heart failure chronicity: unspecified Heart failure type: unspecified Venous insufficiency of both lower extremities I87.2
[2023-08-16] MEDS: FUROsemide 20 mg Tablet PO (10:40)
[2023-08-16 11:35] VITALS: BP 122/72; PULSE 98; TEMP 36.4
--- NOTE | 2023-08-16 12:02 | PC.NURSE ---
Discharge Note Patient discharged to home via ambulation to private vehicle accompanied by . Discharge instructions reviewed with patient and/or tour sales representative. Mobile pharmacy medications and/or prescriptions provided. Meds to bed delivered. Belongings/home medications returned. Instructed and educated pt on his new meds actions, dosing, timing and duration and possible s/e. Provided pt his discharge papers.
[2023-08-16 16:40] LABS: Methicillin-Resist S.aureu PCR NOT DETECTED (NOT DETECTED)
== END 2023-08-16 11:45 | disposition home or self-care (01) | DRG 309 ==
LOC: ER 11:45 → ER IP 13:06 → CSU 08-15 06:04
PROVIDERS: Internal Medicine; Admitting Provider Internal Medicine; Emergency Provider Emergency Medicine; PCP Nurse Practitioner Family; Visit Provider Internal Medicine
DX: I48.91 Unspecified atrial fibrillation (principal); L03.115 Cellulitis of right lower limb; T46.2X6A Underdosing of other antidysrhythmic drugs, initial encounter; I87.2 Venous insufficiency (chronic) (peripheral); N18.9 Chronic kidney disease, unspecified; I50.9 Heart failure, unspecified; Z91.128 Patient's intentional underdosing of medication regimen for other reason; Z86.718 Personal history of other venous thrombosis and embolism; Z95.828 Presence of other vascular implants and grafts; Z90.49 Acquired absence of other specified parts of digestive tract
CPT/HCPCS: 36415; 71045; 71275; 80048; 80053; 81001; 81015; 83735; 83880; 84145; 84443; 84484; 85025; 85378; 87040; 87641; 93005; 93306; 93970; 96365; 96366; 96372; 96375; 96376; 99285; G0378; J0696; J1650; J1940; J3372; J3475; J3490; J7040; Q9967

== ENCOUNTER 2024-01-15 09:29 | Emergency (ER) | payer MEDICAID, SELFPAY ==
[2024-01-15] VITALS (9 sets, daily range): BP systolic 97–118; BP diastolic 70–89; PULSE 85–99; RESP 19–25; TEMP 36.9; O2SAT 92–97; BMI 42.2
--- NOTE | 2024-01-15 09:35 | XR_ITS ---
WS: [id number] XR chest 1V portable [id number] REASON FOR EXAM: palpitations FINDINGS: The chest is unchanged compared to a previous examination of 01/26/2023. Mild to moderate ectasia and tortuosity of the thoracic aorta. Heart size is at the upper limits of normal. Calcified granulomas disease in both hemithoraces. No acute pulmonary parenchymal or pleural abnormality. No dominant lung nodule or lung mass. XR/XR chest 1V portable [id number] IMPRESSION: No acute chest abnormality.
--- NOTE | 2024-01-15 09:36 | ECG_ITS ---
[facility] Test Date: 2024-01-15 Pat Name: Nam Bassett Department: Room: Gender: Male Uniform Attendant: : 1965 Requested By: Danielle Mario Order Number: [id number] Vesna MD: Vi Crowley M.D. Measurements Intervals [place] Rate: 97 P: 0 IA: 0 QRS: 124 QRSD: 120 T: 79 QT: 361 QTc: 459 Interpretive Statements ATRIAL FIBRILLATION RIGHT BUNDLE BRANCH BLOCK [120+ ms QRS DURATION, UPRIGHT V1, 40+ ms S IN I/aVL/V4/V5/V6] LEFT POSTERIOR FASCICULAR BLOCK [QRS AXIS > 109, INFERIOR Q] Compared to ECG 08/14/2023 15:44:46 Right bundle-branch block now present Left posterior fascicular block now present Incomplete right bundle-branch block no longer present Atrial abnormality no longer present Electronically Signed On 01-16-2024 22:00:34 CLEAT MAKER by Vi Crowley M.D. [id number]
--- NOTE | 2024-01-15 09:57 | ED_ITS ---
HPI - SOB/Dyspnea 2 General: Chief Complaint: Shortness of Breath/Dyspnea Stated Complaint: afib Time Seen by Provider: 01/15/24 09:52 History of Present Illness: HPI Narrative: 58-year-old male with a history of morbi d obesity, DVT/PE with a IVC filter, A- fib and chronic lower extremity edema who presents to the emergency room with shortness of breath. He says has been worsening for couple of weeks. He had not having orthopnea until last night and had to sleep in a recliner last night. He says that he becomes very short of breath and that when he walks any distance it hurts in his abdomen. He is quite edematous in his legs. He says he has not had any heart attacks or coronary disease in the past. He says he cannot take blood thinners because of colon problems that he has had in the past. He did start having some cough last night he says. No fevers. No altered mental status. No chest pain. Related Data Home Medications Medication Instructions Recorded Confirmed allopurinol 100 mg tablet 100 mg PO DAILY PRN GOUT 08/14/23 01/15/24 amiodarone 200 mg tablet 200 mg PO DAILY 08/14/23 01/15/24 ibuprofen 200 mg tablet (Advil) 800 mg PO Q6H PRN Pain 01/15/24 01/15/24 naproxen sodium 220 mg tablet 440 mg PO BID 01/15/24 01/15/24 (Aleve) Previous Rx's Medication Instructions Recorded furosemide 20 mg tablet 20 mg PO DAILY@0800 #30 tabs 01/27/23 potassium chloride 10 mEq 10 meq PO DAILY #30 tabs 01/27/23 tablet,extended release azithromycin 250 mg tablet See Rx Instructions PO .COMPLEX #6 01/15/24 (Zithromax Z-Joshua) tabs benzonatate 200 mg capsule 200 mg PO TID PRN cough #30 caps 01/15/24 dexamethasone 6 mg tablet 6 mg PO DAILY 5 days #5 tabs 01/15/24 Allergies Allergy/AdvReac Type Severity Reaction Status Date / Time Penicillins Allergy Unknown Verified 01/26/23 10:19 Review of Systems 2 Narrative: Constitutional symptoms: Negative except as documented in HPI. Skin symptoms: Negative except as documented in HPI. Eye symptoms: Negative except as documented in HPI. ENMT symptoms: Negative except as documented in HPI. Respiratory symptoms: Negative except as documented in HPI. Cardiovascular symptoms: Negative except as documented in HPI. Gastrointestinal symptoms: Negative except as documented in HPI. Genitourinary symptoms: Negative except as documented in HPI. Musculoskeletal symptoms: Negative except as documented in HPI. Neurologic symptoms: Negative except as documented in HPI. Psychiatric symptoms: Negative except as documented in HPI. Endocrine symptoms: Negative except as documented in HPI. PFS ED 2 PFSH: Medical History (Updated 01/15/24 @ 13:21 by Brandie Power MD) Acute kidney injury superimposed on chronic kidney disease Atrial fibrillation Cellulitis of right leg Etta filter in place Arteriovenous malformation of large intestine Venous stasis ulcer with edema of lower leg DVT (deep venous thrombosis) Surgical History History of colon resection Social History Alcohol intake: never Physical Exam 2 Narrative: EXAM NARRATIVE: General: Alert, no acute distress. Skin: Warm, dry. Head: Normocephalic, atraumatic. Neck: Supple, trachea midline. Eye: Extraocular movements are intact. Ears, nose, mouth and throat: mucosa moist. Cardiovascular: Irregularly irregular, legs are very edematous, normal peripheral perfusion. Respiratory: Lungs are clear to auscultation, respirations are non-labored, breath sounds are equal, Symmetrical chest wall expansion. Gastrointestinal: Soft, Nontender, Non distended Musculoskeletal: Normal ROM, no deformity. Neurological: Alert and oriented, No focal neurological deficit observed. Psychiatric: Cooperative, appropriate mood & affect. Course 2 Vital Signs: Vital signs: Vital Signs Temperature 98.4 F 01/15/24 09:38 Pulse Rate 88 01/15/24 13:00 Respiratory Rate 21 H 01/15/24 13:00 Blood Pressure 102/81 01/15/24 12:20 Pulse Oximetry 97 01/15/24 13:00 Oxygen Delivery Me thod Room Air 01/15/24 09:38 MDM - SOB/Dyspnea Medical Decision Making Differential diagnosis for patient with shortness of breath includes but is not limited to and based on the above HPI, review of systems and physical exam: Pneumonia. Bronchitis. Asthma or COPD with acute exacerbation. Acute coronary syndrome / RI. Pulmonary embolism. Anxiety. Congestive heart failure. Viral infections including influenza and Covid-19. Atrial fibrillation. Anxiety. Pleural effusion. Pneumothorax. Orders placed to evaluate differential diagnosis based on the above differential, HPI and physical exam EKG: Time 11:45 AM. Rate 85. Atrial fibrillation with controlled rate, No ST-T changes, no ectopy, This was reviewed and interpreted by myself the ER physician at 11:50 AM Chest x-ray: No acute process. No infiltrate. No pneumothorax. This was reviewed and interpreted by myself the ER physician. Lab Review: Laboratory results were reviewed and interpreted by myself the emergency room physician. No leukocytosis. No anemia. No renal failure. BUN and creatinine are [address] of the chest abdomen pelvis with contrast: No acute chest findings. Femoral lymph nodes that are suspicious. Likely will need a biopsy. IVC filter is in place. No acute findings on the abdomen either. I discussed the CT scan findings with the radiologist on-call. This was reviewed and interpreted by myself the emergency room physician. I also reviewed the radiology report. I reviewed the patient's medical record. Reexamination: Patient remained stable. No increased work of breathing. No altered mental status. No focal motor deficits. Patient has not required any oxygen. Lungs are clear. Patient does have an active acute cough. Perhaps he just has a viral infection at this time. No signs of heart failure or fluid overload in the chest. No signs of pneumonia. No acute findings that would diagnose the abdominal pain he has been having. At this point we discussed that he will follow-up with his primary care physician. He is aware of the lymph nodes seen on the CT scan. Assessment and plan: Dyspnea on exertion Probable viral upper respiratory infection Enlarged lymph nodes in the groin ?IV Solu-Medrol and Tessalmatilda Rush in the emergency room - Discharged home - Discussed findings and plan with patient. Answered any questions. - All laboratory values were reviewed and interpreted personally by myself, the ER physician - All imaging was reviewed and interpreted personally by myself, the ER physician. - Evaluation and treatment of this problem were appropriate in the emergency setting Lab Data 01/15/24 10:04 01/15/24 10:04 Labs/Radiology: Radiology Impressions Chest X-Ray 01/15/24 09:35 IMPRESSION: No acute chest abnormality. Chest/Abdomen/Pelvis CT 01/15/24 11:31 IMPRESSION: 1. No acute chest findings 2. Several enlarged lobulated femoral and inguinal lymph nodes RIGHT greater than LEFT nonspecific but neoplasm not excluded. No prior comparisons. Recommend correlation with clinical history. Additional work-up could include ultrasound- guided biopsy. 3. IVC filter. 4. Sigmoid diverticulosis. Notified Brandie Power MD at 01/15/2024 1:16 PM. Laboratory Results WBC 4.34 10^3/uL (3.29-11.43) 01/15/24 10:04 RBC 4.81 10^6/uL (3.85-5.65) 01/15/24 10:04 Hgb 15.10 g/dL (11.27-16.99) 01/15/24 10:04 Hct 46.8 % (37-53) 01/15/24 10:04 MCV 97.3 fl (82-101) 01/15/24 10:04 MCH 31.4 pg (27-33) 01/15/24 10:04 MCHC 32.3 g/dL (30-55) 01/15/24 10:04 RDW 14.1 % (12.1-15.1) 01/15/24 10:04 Plt Count 147 10^3/cmm (157-399) L 01/15/24 10:04 MPV 10.2 fL (7.4-10.4) 01/15/24 10:04 Neut % (Auto) 57.1 % 01/15/24 10:04 Lymph % (Auto) 20.5 % 01/15/24 10:04 [place] % (Auto) 19.8 % 01/15/24 10:04 Eos % (Auto) 1.4 % 01/15/24 10:04 Baso % (Auto) 0.5 % 01/15/24 10:04 Neut # (Auto) 2.48 10^3/uL (1.8-7.7) 01/15/24 10:04 Lymph # (Auto) 0.9 10^3/uL (0.8-4.8) 01/15/24 10:04 [place] # (Auto) 0.9 10^3/uL (0.2-0.9) 01/15/24 10:04 Eos # (Auto) 0.1 10^3/uL (0.0-0.8) 01/15/24 10:04 Baso # (Auto) 0.0 10^3/uL (0.0-0.1) 01/15/24 10:04 Nucleated RBC % (auto) 0 % 01/15/24 10:04 Nucleated RBCs # 0.0 /100WBC 01/15/24 10:04 Sodium 137 mmol/L (136-145) 01/15/24 10:04 Potassium 4.2 mmol/L (3.5-5.1) 01/15/24 10:04 Chloride 104 mmol/L (98-107) 01/15/24 10:04 Carbon Dioxide 24 mmol/L (22-29) 01/15/24 10:04 Anion Gap 13.2 (5-19) 01/15/24 10:04 BUN 15 mg/dL (6-20) 01/15/24 10:04 Creatinine 1.1 mg/dL (0.7-1.2) 01/15/24 10:04 GFR Calculation 69.2 mL/min (90-130) L 01/15/24 10:04 Glucose 98 mg/dL (65-115) 01/15/24 10:04 Calculated Osmolality 285 mOsm/kg (285-295) 01/15/24 10:04 Calcium 8.7 mg/dL (8.5-10.5) 01/15/24 10:04 Total Bilirubin 0.7 mg/dL (0.15-1.2) 01/15/24 10:04 AST 14 U/L (0-40) 01/15/24 10:04 ALT 17 U/L (0-41) 01/15/24 10:04 Alkaline Phosphatase 63 U/L (40-130) 01/15/24 10:04 Troponin T Baseline < 6 ng/L (0-15) 01/15/24 10:04 NT-Pro-B Natriuret Pep 1717 pg/mL (0-125) H 01/15/24 10:04 Total Protein 6.1 g/dL (6.6-8.7) L 01/15/24 10:04 Albumin 4.2 g/dL (3.5-5.2) 01/15/24 10:04 Globulin 1.9 g/dL (1.3-4.6) 01/15/24 10:04 All radiology interpretation(s) finalized by discharge Discharge Plan Discharge Patient Disposition: Home Clinical Impression: Dyspnea, Lymph node enlargement, Edema, Presence of IVC filter Condition: Stable Prescriptions: New benzonatate 200 mg capsule 200 mg PO TID PRN (Reason: cough) Qty: 30 0RF dexamethasone 6 mg tablet 6 mg PO DAILY 5 Days Qty: 5 0RF azithromycin [Zithromax Z-Joshua] 250 mg tablet See Rx Instructions .ROUTE .COMPLEX Qty: 6 0RF Rx Instructions: For 250 mg dose pack: take 500 mg today (day 1), then 250 mg for 4 days (days 2-5) No Action furosemide 20 mg Tablet 20 mg PO DAILY@0800 Qty: 30 3RF potassium chloride 10 mEq tablet extended release 10 meq PO DAILY Qty: 30 1RF allopurinol 100 mg tablet 100 mg PO DAILY PRN (Reason: GOUT) amiodarone 200 mg tablet 200 mg PO DAILY naproxen sodium [Aleve] 220 mg Tablet 440 mg PO BID ibuprofen [Advil] 200 mg Tablet 800 mg PO Q6H PRN (Reason: Pain) Discharge Orders: Discharge ED (Routine); Ordered 01/15/24 Ordered By: Brandie Power Referrals: Arabella Beasley, CASINO SURVEILLANCE OFFICER [Primary Care Provider] - Discharge Diet: Usual diet Discharge Activity: Increase activity as tolerated Patient Instructions: Upper Respiratory Infection (ED), Opioid Safety, Pain Management Activity Restrictions/Additional Instructions: You need to follow-up with your primary provider concerning the lymph node seen in your groin on CT scan as well as with your worsening shortness of breath. Thank you for choosing [facility] for your healthcare needs today. Please realize this is an emergency room and that we are providing you with a medical screening exam and this may not be complete and all inclusive of all the testing and or work up that you may need to determine your ailment or severity of your illness. You have been screened and evaluated and felt safe for discharge. Health conditions do change or evolve sometimes and as such it is important that you follow up with your Primary Doctor to be re checked, 3-5 days is a general good time frame for follow up. You are always welcome to return to the ED for re assessment if your symptoms are worsening or you have new concerns Coding Level of Care Code ED Matcher Operator for Biju Carrillo
[2024-01-15 10:28] LABS: Basophils % 0.5 %; Eosinophils # 0.1 10^3/uL (0.0-0.8); Eosinophils % 1.4 %; Hematocrit 46.8 % (37-53); Lymphocytes # 0.9 10^3/uL (0.8-4.8); Lymphocytes % 20.5 %; Mean Corpuscular HGB Conc 32.3 g/dL (30-55); Mean Corpuscular Hemoglobin 31.4 pg (27-33); Mean Corpuscular Volume 97.3 fl (82-101); Mean Platelet Volume 10.2 fL (7.4-10.4); Monocytes # 0.9 10^3/uL (0.2-0.9); Monocytes % 19.8 %; Neutrophils # 2.48 10^3/uL (1.8-7.7); Neutrophils % 57.1 %; Nucleated Red Blood Cells % 0 %; Platelet Count 147 10^3/cmm (157-399); Red Blood Count 4.81 10^6/uL (3.85-5.65); Red Cell Distribution Width 14.1 % (12.1-15.1); White Blood Count 4.34 10^3/uL (3.29-11.43)
[2024-01-15 11:01] LABS: Alanine Aminotransferase 17 U/L (0-41); Albumin Level 4.2 g/dL (3.5-5.2); Alkaline Phosphatase 63 U/L (40-130); Anion Gap 13.2 (5-19); Aspartate Amino Transferase 14 U/L (0-40); Blood Urea Nitrogen 15 mg/dL (6-20); Calcium 8.7 mg/dL (8.5-10.5); Carbon Dioxide 24 mmol/L (22-29); Chloride 104 mmol/L (98-107); Creatinine Clr Calc Pharmacy 112.4242; Globulin 1.9 g/dL (1.3-4.6); Glomerular Filtration Rate 69.2 mL/min (90-130); Glucose 98 mg/dL (65-115); NT Pro B Type Natriuretic Pept 1717 pg/mL (0-125); Osmolality Calculated 285 mOsm/kg (285-295); Potassium 4.2 mmol/L (3.5-5.1); Sodium 137 mmol/L (136-145); Total Bilirubin 0.7 mg/dL (0.15-1.2); Total Protein 6.1 g/dL (6.6-8.7)
--- NOTE | 2024-01-15 11:31 | CT_ITS ---
WS: [id number] CT CHEST, ABDOMEN, AND PELVIS TECHNIQUE: Contrast-enhanced CT of the chest, abdomen, and pelvis with coronal and sagittal reformatt ed images. CLINICAL INFORMATION: sob, abd pain, swelling COMPARISON: None. DLP: 1988.[address] scans at [facility] use at least one of these dose optimization techniques: automated e xposure control; mA and/or kV adjustment per patient size (includes targeted exams where dose is matc hed to clinical indication); or iterative reconstruction. CT CHEST: Lungs are well aerated. No acute pulmonary infiltrates. No focal pneumonia or pleural fluid. Normal caliber thoracic aorta. No mediastinal or hilar lymphadenopathy. Proximal main pulmonary arter ies appear normal. No axillary lymphadenopathy. No pneumothorax. Hypertrophic changes thoracic spine. CT ABDOMEN AND PELVIS: Mild diffuse fatty infiltration of the liver. Mild hepatomegaly. Surgical clips in the upper abdomen. Gallbladder is contracted. Normal spleen. Tiny esophageal hiatal hernia. Normal pancreas. Adrenal gl ands are normal. Normal caliber abdominal aorta. Celiac and SMA are patent. No hydronephrosis in eith er kidney. Tiny fat-containing umbilical hernia. Sigmoid diverticuli. Tiny fat-containing LEFT inguinal hernia. IVC filter. Several enlarged femoral and inguinal lymph nodes nonspecific. No comparisons. Largest right-sided ly mph node measures 4.4 x 1.8 cm. Largest left-sided lymph node measures 3.[address]/CT chest abdpel w/*[id number] IMPRESSION: 1. No acute chest findings 2. Several enlarged lobulated femoral and inguinal lymph nodes RIGHT greater t francis LEFT nonspecific but neoplasm not excluded. No prior comparisons. Recommend correlation with clinical history. Additional work-up could include ultrasound -guided biopsy. 3. IVC filter. 4. Sigmoid diverticulosis. Notified Brandie Power MD at 01/15/2024 1:16 PM.
--- NOTE | 2024-01-15 11:45 | ECG_ITS ---
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: : 1965 Requested By: Brandie Ayala Order Number: [id number] Reading MD: LAUREN SANDY Measurements Intervals [place] Rate: 85 P: 0 NC: 0 QRS: 145 QRSD: 120 T: 80 QT: 406 QTc: 484 Interpretive Statements ATRIAL FIBRILLATION RIGHT BUNDLE BRANCH BLOCK [120+ ms QRS DURATION, UPRIGHT V1, 40+ ms S IN I/aVL/V4/V5/V6] LEFT POSTERIOR FASCICULAR BLOCK [QRS AXIS > 109, INFERIOR Q] POSSIBLE ANTERIOR MYOCARDIAL INFARCTION , PROBABLY OLD [30 ms Q WAVE IN V3/V4, OR R < 0.2 mV IN V4] Compared to ECG 01/15/2024 09:33:25 Myocardial infarct finding now present Electronically Signed On 01-17-2024 00:34:46 QUARANTINE OFFICER by LAUREN SANDY [email or web address]
[2024-01-15] MEDS: benzonatate 100 mg Capsule 200 MG PO (12:27)
[2024-01-15] MEDS: iohexol 350 mg/mL 500 mL Btl (per mL) IV (12:29)
[2024-01-15 12:35] LABS: Troponin(5th) Baseline < 6 ng/L (0-15)
[2024-01-15] MEDS: methylPREDNISolone sod succ 125 mg/2 mL INJ IVP (13:24)
== END 2024-01-15 13:37 | disposition home or self-care (01) ==
PROVIDERS: Emergency Medicine; Emergency Provider Emergency Medicine; PCP Nurse Practitioner Family
DX: R06.00 Dyspnea, unspecified (principal); R59.9 Enlarged lymph nodes, unspecified; R60.9 Edema, unspecified; Z95.828 Presence of other vascular implants and grafts; N18.9 Chronic kidney disease, unspecified
CPT/HCPCS: 71045; 71260; 74177; 80053; 83880; 84484; 85025; 93005; 96374; 99285; J2919